=== PATIENT | female | born 1930 | race Caucasian/White ===

== ENCOUNTER 2016-09-18 14:42 | Inpatient (IN) | payer OTHER, MEDICAID ==
[~2016-09-18] VITALS: Ht 149.9 cm; Wt 53.1 kg
[2016-09-18 14:42] VITALS: BP 156/76; PULSE 78; RESP 19; TEMP 97.8; O2SAT 100
--- NOTE | 2016-09-18 14:42 | NUR ---
Patient to ER bed 3 to gown for evaluation. Side rails up. Report given to KAVYA Castillo.
--- NOTE | 2016-09-18 14:45 | NUR ---
PT IN BED 3, NO SOB. NONVERBAL. HERE FOR REPORT OF POSSIBLE SEPSIS. NO SIGN OF PAIN. WILL CONTINUE TO MONITOR.
--- NOTE | 2016-09-18 14:45 | NUR ---
ER at bedside examining patient.
[2016-09-18 16:02] LABS: ANION GAP 7 (5-15); CALCIUM 8.7 mg/dL (8.4-11.0); CHLORIDE 104 mmol/L (98-107); CREATININE 1.59 mg/dL (0.55-1.30); GLUCOSE 173 mg/dL (70-99); POTASSIUM 3.8 mmol/L (3.5-5.1); SODIUM SERUM 140 mmol/L (136-145); UREA NITROGEN, BLOOD 53 mg/dL (8-21)
[2016-09-18 16:04] LABS: PROTHROMBIN TIME 10.9 SECS (9.5-12.5)
[2016-09-18 16:12] LABS: HEMATOCRIT 36.5 % (36-48); HEMOGLOBIN 12.5 g/dL (12.0-16.0); MEAN CORPUSCULAR HEMOGLOBIN 30 pg (27-31); MEAN CORPUSCULAR HGB CONC 34 % (32-36); MEAN CORPUSCULAR VOLUME 88 fL (79.0-98.0); PLATELET COUNT (AUTO) 116 K/uL (130-430); RED BLOOD CELL COUNT(AUTO) 4.15 MIL/uL (4.2-6.2); RED CELL DISTRIBUTION WIDTH 13.6 % (9.0-15.0); WHITE BLOOD COUNT (AUTO) 21.7 K/uL (4.8-10.8)
[2016-09-18 16:19] LABS: ALANINE AMINOTRANSFERASE 21 U/L (12-78); ALBUMIN 2.3 g/dL (3.4-4.8); ASPARTATE AMINOTRANSFERASE 15 U/L (10-37); FREE T4 (FREE THYROXINE) 0.7 ng/dL (0.6-1.6); TOTAL BILIRUBIN 0.4 mg/dL (0.0-1.0); TOTAL PROTEIN, SERUM 7.2 g/dL (6.4-8.3)
[2016-09-18 16:22] LABS: ALCOHOL, BLOOD < 3 mg/dL (<10)
[2016-09-18 16:28] LABS: BILIRUBIN,URINE NEGATIVE (NEGATIVE); BLOOD, URINE 3+ (NEGATIVE); CLARITY/URINE SL HAZY (CLEAR); COLOR,URINE YELLOW (YELLOW); GLUCOSE,URINE NEGATIVE (NEGATIVE); KETONES,URINE NEGATIVE (NEGATIVE); LEUKOCYTE ESTERASE ,URINE 1+ (NEGATIVE); NITRITE, URINE POSITIVE (NEGATIVE); PROTEIN URINE 2+ (NEGATIVE)
[2016-09-18 16:30] LABS: UROBILINOGEN,URINE >=8 (0.2-1.0)
[2016-09-18] MEDS ORDERED: LEVOFLOXACIN 500 MG/D5W 100 ML IV ONE (16:45)
[2016-09-18 16:46] LABS: BARBITURATE, URINE NEGATIVE (NEG <=200); BENZODIAZEPINE, URINE NEGATIVE (NEG <=150); CANNABINOID, URINE NEGATIVE (NEG <=50); COCAINE, URINE NEGATIVE (NEG <=150); METHAMPHETAMINES SCREEN,URINE NEGATIVE (NEG <=500); OPIATE, URINE NEGATIVE (NEG <=100); PHENCYCLIDINE SCREEN,URINE NEGATIVE (NEG <=25); URINE AMPHETAMINE NEGATIVE (NEG <=500); URINE METHADONE NEGATIVE (NEG <=200)
[2016-09-18 16:47] LABS: UR TRICYCLIC ANTIDEPRESSANTS NEGATIVE (NEG <=300); URINE OXYCODONE SCREEN NEGATIVE (NEG <=100); URINE PROPOXYPHENE SCREEN NEGATIVE (NEG <=300)
[2016-09-18 16:59] LABS: BACTERIA,URINE MODERATE /HPF (None Seen); MUCUS,URINE None Seen /LPF (None Seen); WBC,URINE 20-50 /HPF (0-3)
[2016-09-18] MEDS ORDERED: MINERAL OIL 133 ML ENEMA RC ONE (17:00)
[2016-09-18 17:09] LABS: BAND % (MANUAL) 9 % (0-6); LYMPHOCYTES % (MANUAL) 8 % (20-46)
[2016-09-18 17:10] LABS: BASOPHILS % (MANUAL) 0 % (0-2); EOSINOPHILS % (MANUAL) 1 % (0-7); MONOCYTES % (MANUAL) 4 % (0-11)
--- NOTE | 2016-09-18 17:10 | NUR ---
Patient will be admitted to care of DR. Ac NAYAK. Admitted to TELEMETRY unit. Will go to room 120A. Summary report printed. Report given to KAVYA PFEIFFER.
--- NOTE | 2016-09-18 17:10 | NUR ---
ADMISSION NOTE Received patient from ER via gurney. Patient admitted with diagnosis of . Patient is awake, alert, oriented X 1. Personal belongings checked and Belongings List documented. Call light within reach.
--- NOTE | 2016-09-18 17:24 | NUR ---
CONSULT ID SEPSIS DR DELLA GENAO [phone] S/W RUI STUBBS @ [id number]
--- NOTE | 2016-09-18 17:38 | NUR ---
PAGED DR NAYAK FOR ELEVATED BP 197/89 AND MEDICATION ORDERS
[2016-09-18 17:58] VITALS: BP 197/89; PULSE 73; RESP 18; O2SAT 91
[2016-09-18] MEDS ORDERED: cefTRIAXone 1 GM in D5W 50 ML IV SCH (18:00)
--- NOTE | 2016-09-18 18:16 | NUR ---
INITIAL NOTE Patient received, non verbal unable to track with eyes at this time. Respirations even and unlabored. MD paged regarding elevated BP, awaiting call back. IV site patent, intact, infusing fluids as ordered. ekg monitor in place, rhythm noted. Plan of care discussed with daughterYeimy at bedside, understanding was verbalized. Spoke with Dr. Sloan, ID consult, to see patient. No further needs at this time. Will endorse to next shift.
[2016-09-18] MEDS: D5/0.45 NS 1,000 ML IV SCH (18:24)
[2016-09-18] MEDS ORDERED: ENALAPRILAT DIHYDRATE 1.25 MG/ML VIAL IVP PRN (18:30)
[2016-09-18] MEDS ORDERED: ENALAPRILAT DIHYDRATE 1.25 MG/ML VIAL IVP ONE (18:30)
--- NOTE | 2016-09-18 19:26 | NUR ---
Initial PM Note Pt was received lying in bed non-verbal. No acute distress noted. Daughter is visiting at the bedside. IVF is infusing well in Rt wrist. Fall and safety precautions are in place. Call light is with pt and bed alarm is on. Side rails are padded. Bed is in the lowest and locked positions. Will continue to monitor pt.
[2016-09-18 19:30] VITALS: BP 166/89; PULSE 72; RESP 19; TEMP 97.4; O2SAT 94
[2016-09-18] MEDS ORDERED: METOPROLOL TARTRATE 5 MG/5 ML VIAL IVP PRN (19:30)
--- NOTE | 2016-09-18 19:46 | NUR ---
Mineral Oil Enema Mineral oil enema given per rectum as ordered.
[2016-09-18] MEDS: levETIRAcetam 500 MG in NS 100 ML IV SCH (20:48)
--- NOTE | 2016-09-18 21:30 | NUR ---
Rounds Pt is resting quietly in bed. No facial grimacing noted. IVF is infusing well. Call light is with pt.
--- NOTE | 2016-09-18 23:00 | NUR ---
Rounds Pt is resting comfortably in bed. IVF is infusing well.
[2016-09-19 00:01] VITALS: BP 162/70; PULSE 81; RESP 17; TEMP 96.4; O2SAT 96
--- NOTE | 2016-09-19 01:00 | NUR ---
Rounds Pt is sleeping comfortably in bed. IVF is infusing well. Call light is with pt.
[2016-09-19 04:00] VITALS: BP 141/97; PULSE 76; RESP 16; TEMP 97.6; O2SAT 90
[2016-09-19 06:29] LABS: ANION GAP 8 (5-15); CALCIUM 8.5 mg/dL (8.4-11.0); CHLORIDE 103 mmol/L (98-107); CREATININE 1.25 mg/dL (0.55-1.30); GLUCOSE 248 mg/dL (70-99); POTASSIUM 3.4 mmol/L (3.5-5.1); SODIUM SERUM 140 mmol/L (136-145); UREA NITROGEN, BLOOD 35 mg/dL (8-21)
--- NOTE | 2016-09-19 06:30 | NUR ---
Closing Note Pt is resting comfortably in bed. All pt's needs were attended to. Will endorse to day shift nurse.
[2016-09-19 06:58] LABS: BASOPHILS % (AUTO) 0.1 % (0.0-2.0); EOSINOPHILS # (AUTO) 0.1 K/uL (0.0-0.4); EOSINOPHILS % (AUTO) 0.4 % (0.0-4.0); HEMATOCRIT 40.2 % (36-48); HEMOGLOBIN 13.8 g/dL (12.0-16.0); LYMPHOCYTES # (AUTO) 0.6 K/uL (1.0-5.5); LYMPHOCYTES % (AUTO) 3.5 % (20.5-51.5); MEAN CORPUSCULAR HEMOGLOBIN 30 pg (27-31); MEAN CORPUSCULAR HGB CONC 34 % (32-36); MEAN CORPUSCULAR VOLUME 87 fL (79.0-98.0); MONOCYTES # (AUTO) 0.7 K/uL (0.0-1.0); MONOCYTES % (AUTO) 3.6 % (1.7-9.3); PLATELET COUNT (AUTO) 107 K/uL (130-430); RED BLOOD CELL COUNT(AUTO) 4.63 MIL/uL (4.2-6.2); RED CELL DISTRIBUTION WIDTH 13.6 % (9.0-15.0); WHITE BLOOD COUNT (AUTO) 18.4 K/uL (4.8-10.8)
[2016-09-19 07:18] LABS: NEUTROPHILS % (AUTO) 92.4 % (40.0-70.0)
[2016-09-19 08:00] VITALS: BP 151/75; PULSE 93; RESP 22; TEMP 100; O2SAT 94
--- NOTE | 2016-09-19 09:21 | NUR ---
DR GUPTA IN TO SEE PATIENT, ORDERS TO CONTINUE HOME MEDS GIVEN, ORDERS FOR SWALLOW EVAL. GIVE PO MEDS AFTER SWALLOW EVAL PASS
--- NOTE | 2016-09-19 09:28 | NUR ---
Swallow evaluation: Order received for a swallow evaluation, call was placed to [facility] [phone]. Spoke with Samia, she will be in to evaluate the pt this afternoon. Will follow up as needed.
[2016-09-19] MEDS: D5/0.45 NS 1,000 ML IV SCH (09:31)
[2016-09-19] MEDS: levETIRAcetam 500 MG in NS 100 ML IV SCH ×2 (09:32→21:24)
--- NOTE | 2016-09-19 11:21 | NUR ---
CALLS FROM BOTH PT SON AND DAUGHTER REGARDING STATUS. GAVE UPDATES. AWAITING ON SPEECH THERAPY SWALLOW EVAL AT THIS TIME.
[2016-09-19 12:26] VITALS: BP 148/72; PULSE 95; RESP 19; TEMP 98.9; O2SAT 95
--- NOTE | 2016-09-19 13:00 | NUR ---
MRSA SCREEN SWAB SENT TO LAB PER PROTOCOL
[2016-09-19] MEDS ORDERED: D5W IV SCH (15:00)
[2016-09-19] MEDS ORDERED: GENTAMICIN 120 MG/ ISO-OSM 100 ML PREMIX IV SCH (15:00)
[2016-09-19] MEDS ORDERED: CEFEPIME IV SCH (15:00)
--- NOTE | 2016-09-19 15:35 | NUR ---
S.T. SWALLOW EVAL COMPLETED. PT PRESENTS W/ SEV OROPHARYNGEAL DYSPHAGIA W/ ORAL DEFENSIVENESS, POOR BOLUS SOLE SEWER HAND, SEV DELAYED BOLUS TRANSFER, AND DELAYED OR ABSENT SWALLOW. PT IS AT RISK FOR ASPIRATION, MALNUTRITION, AND DEHYDRATION. REC: NPO - ALTERNATIVE METHOD FOR FEEDING. RE-EVAL IN A FEW DAYS INDICATED. NURSE ANGE NOTIFIED. G8996 CM G8997 CM G8998 CM NOMS LEVEL 2
--- NOTE | 2016-09-19 16:16 | NUR ---
PATIENT TAKEN TO CT VIA MAURICIO
[2016-09-19 16:48] VITALS: BP 140/70; PULSE 92; RESP 18; TEMP 98.6; O2SAT 95
--- NOTE | 2016-09-19 18:36 | NUR ---
CLOSING NOTE PATIENT IS AWAKE AND SITTING UP IN BED, CATHYECE, NAIVD, IS AT BEDSIDE FEEDING HER APPLESAUCE. PER NIECE SHE IS USUALLY THE PERSON FEEDING HER AUNT AND HER AUNT OFTEN WON'T TAKE PILLS FROM THE NURSES. SHE STATES SHE REFUSES TO EAT FOR THE NURSES WELL. I INFORMED HER THAT THE PATIENT HAS HAD A PROFESSIONAL SWALLOW EVALUATION FROM A SPEECH PATHOLOGIST WHO RECOMMENDED WE NO FEED THE PATIENT ANYTHING FOR A COUPLE MORE DAYS UNTIL SHE IS MORE ALERT. LA NENA AGAIN INSISTED SHE WOULD EAT WELL FOR HER. OFFERED HER APPLESAUCE TO TRY AND FEED THE PATIENT AND THE PATIENT WAS ABLE TO SWALLOW EFFECTIVELY. LEFT NOTE IN SBAR FOR NEXT SHIFT TO HAVE MD AND ASSURANCE AUDITOR GET IN TOUCH WITH NAVID REGARDING THIS SITUATION.
--- NOTE | 2016-09-19 19:39 | NUR ---
REPORT REPORT GIVEN TO DIRECTOR CHEMISTRY RN REGARDING PATIENT NPO STATUS, FAILED SWALLOW EVAL AND NIECE FEEDING HER APPLESAUCE. ER DID NOT ENTER MEDICATIONS HOWEVER MD DOES NOT WANT PATIENT TAKING PO MEDICATIONS UNTIL SHE PASSES SWALLOW EVAL ANYWAY. MEDICATION LIST WITH CHECK HOOD ON MEDS MD WANTS PT ON IN HOSPITAL IS IN SBAR FOLDER. PASSED THIS INFO ON TO DIRECTOR CHEMISTRY WELL.
[2016-09-19 20:00] VITALS: BP 151/74; PULSE 67; RESP 18; TEMP 97.6; O2SAT 95
--- NOTE | 2016-09-19 20:00 | NUR ---
Initial PM Note Pt was received lying in bed sleeping and easily arousable. Pt is non-verbal. No acute distress or seizure activity noted. IVF is infusing well in Rt wrist without any signs of infiltration. Fall and safety precautions are in place. Call light is with pt and bed alarm is on. Side rails are padded. Bed is in the lowest and locked positions. Will continue to monitor pt.
[2016-09-19] MEDS ORDERED: ASA81 PO (20:36)
[2016-09-19] MEDS ORDERED: ESCI5TAB PO (20:36)
[2016-09-19] MEDS ORDERED: LEVE500T53 PO (20:36)
[2016-09-19] MEDS ORDERED: DEPL250/5 PO (20:36)
[2016-09-19] MEDS ORDERED: ACET160S2 PO (20:36)
[2016-09-19] MEDS ORDERED: MELA5TAB12 PO (20:47)
[2016-09-19] MEDS ORDERED: SIMV40TA5 PO (20:47)
[2016-09-19] MEDS ORDERED: TRIH2TAB3 PO (20:47)
[2016-09-19] MEDS ORDERED: METO25TA6 PO (20:47)
--- NOTE | 2016-09-19 22:00 | NUR ---
Rounds Pt is resting comfortably in bed. IVF is infusing well without any signs of infiltration.
--- NOTE | 2016-09-20 | NUR ---
Rounds Pt is sleeping without any respiratory distress noted. No seizure activity noted. IVF is infusing well in Rt wrist.
[2016-09-20 01:17] VITALS: BP 144/86; PULSE 73; RESP 16; TEMP 99.5; O2SAT 93
--- NOTE | 2016-09-20 02:00 | NUR ---
Rounds Pt is sleeping without any distress noted. IVF is infusing well and call light is with pt.
[2016-09-20] MEDS: D5/0.45 NS 1,000 ML IV SCH ×3 (02:08→21:38)
[2016-09-20 04:00] VITALS: BP 150/97; PULSE 76; RESP 18; TEMP 96.6; O2SAT 95
--- NOTE | 2016-09-20 04:00 | NUR ---
Rounds Pt is sleeping comfortably in bed. Call light is with pt.
--- NOTE | 2016-09-20 05:29 | NUR ---
Rounds Pt is sleeping comfortably in bed. IVF is infusing well in RAC. Addendum: 09/20/16 at 1698 by Prudence Aggarwal RN IVF is infusing well in Rt wrist and call light is with pt.
[2016-09-20 06:35] LABS: ALANINE AMINOTRANSFERASE 16 U/L (12-78); ALBUMIN 2.1 g/dL (3.4-4.8); ANION GAP 5 (5-15); ASPARTATE AMINOTRANSFERASE 17 U/L (10-37); CALCIUM 8.2 mg/dL (8.4-11.0); CHLORIDE 104 mmol/L (98-107); CREATININE 1.06 mg/dL (0.55-1.30); GLUCOSE 202 mg/dL (70-99); SODIUM SERUM 138 mmol/L (136-145); TOTAL BILIRUBIN 0.5 mg/dL (0.0-1.0); TOTAL PROTEIN, SERUM 6.6 g/dL (6.4-8.3); UREA NITROGEN, BLOOD 26 mg/dL (8-21)
[2016-09-20 06:42] LABS: BASOPHILS % (AUTO) 0.1 % (0.0-2.0); EOSINOPHILS # (AUTO) 0.4 K/uL (0.0-0.4); HEMOGLOBIN 12.5 g/dL (12.0-16.0); LYMPHOCYTES # (AUTO) 1.3 K/uL (1.0-5.5); LYMPHOCYTES % (AUTO) 8.6 % (20.5-51.5); MEAN CORPUSCULAR HEMOGLOBIN 29 pg (27-31)
--- NOTE | 2016-09-20 07:00 | NUR ---
Closing Note Pt is resting comfortably in bed. All pt's needs were attended to. No fall or injury noted this shift. Will endorse to day shift nurse.
[2016-09-20 07:03] LABS: EOSINOPHILS % (AUTO) 2.7 % (0.0-4.0); HEMATOCRIT 37.9 % (36-48); MEAN CORPUSCULAR HGB CONC 33 % (32-36); MEAN CORPUSCULAR VOLUME 86 fL (79.0-98.0); MONOCYTES # (AUTO) 1.8 K/uL (0.0-1.0); MONOCYTES % (AUTO) 11.3 % (1.7-9.3); NEUTROPHILS % (AUTO) 77.3 % (40.0-70.0); PLATELET COUNT (AUTO) 125 K/uL (130-430); RED CELL DISTRIBUTION WIDTH 13.8 % (9.0-15.0); WHITE BLOOD COUNT (AUTO) 15.5 K/uL (4.8-10.8)
[2016-09-20 07:45] VITALS: BP 198/78; PULSE 80; RESP 22; TEMP 96.8; O2SAT 97
--- NOTE | 2016-09-20 08:00 | NUR ---
INITIAL ROUNDS Received pt Awake, eyes open, non-verbal. No s/s resp distress, no s/s pain or discomfort. Noted pt with elevated BP-will give PRN BP medication as ordered for SBP > 160. Pt on air mattress-will reposition pt Q 2hrs with pillow support and heels off-loaded for skin care. IVF infusing well to right wrist at ordered rate with no s/s infiltration to site. Pt's daughter at bedside and is requesting to speak with Dr. Ruiz-will inform MD/leave note on front of chart. Plan of care for the day reviewed with pt's daughter Yeimy-she verbalized her understanding. Pain management, disease process, skin and safety discussed-teach back done with pt's daughter. Side rails up x3, bed alarm on and room close to nursing station for safety.Call light within reach.
[2016-09-20] MEDS: levETIRAcetam 500 MG in NS 100 ML IV SCH ×2 (08:23→21:35)
--- NOTE | 2016-09-20 10:07 | NUR ---
Uro Consult: for [employer] Tavarez; regarding hydrohephrosis, ordered by Faith Poole; spoke with Bettina.
--- NOTE | 2016-09-20 10:10 | NUR ---
ROUNDS/BP/MD Pt resting quietly in bed with no s/s resp distress, no s/s pain or discomfort. Pt's BP rechecked 210/97. Dr. Ruiz here and informed-stated he will place order for bp medication. Discussed pt's daughter Yeimy's concerns with MD-he stated he will call her. Results of CT abd and Speech evaluation discussed with MD-he stated he will order urinary consult. All precautions remain in place.
[2016-09-20] MEDS ORDERED: POTASSIUM CHLORIDE 40 MEQ in NS 250 ML IV ONE (10:15)
--- NOTE | 2016-09-20 10:28 | NUR ---
GI Consult: for Dr. Greer, regarding constipation, ordered by Dr. Ruiz, spoke with
[2016-09-20 10:43] VITALS: Ht 149.9 cm; Wt 53.1 kg
[2016-09-20] MEDS: METOPROLOL TARTRATE 5 MG/5 ML VIAL IVP PRN ×2 (10:52→15:58)
--- NOTE | 2016-09-20 11:02 | NUR ---
BP/ROUND Pt resting in bed. Recheck BP: 192/92, HR 79. Medicated with lopressor IVP PRN per MD order. Will continue to monitor.
--- NOTE | 2016-09-20 12:35 | NUR ---
MD VISIT Pt seen by Dr. [facility]-he called and spoke with pt's daughter Yeimy regarding the need for Cystoscopy and possible right ureteral stent tomorrow. Pt's daughter will come this evening to sign the consent. Pt resting quietly with no s/s resp distress, no s/s pain or discomfort.
[2016-09-20 12:40] VITALS: BP 192/92; PULSE 79; RESP 18; TEMP 97.9; O2SAT 96
[2016-09-20] MEDS ORDERED: COMMUNICATION ORDER XX ONE (14:15)
--- NOTE | 2016-09-20 14:15 | NUR ---
ROUNDS Pt placed on Contact Isolation for ESBL + of the urine. Pt resting quietly in bed with no s/s resp distress, no s/s pain or discomfort. K-rider still infusing well to Right wrist at ordered rate with no s/s infiltration to site. Pt had moderate sized BM, pt cleaned up and repositioned with pillow support and heels off-loaded for skin care. All precautions remain in place.
[2016-09-20] MEDS ORDERED: NA PHOS,M-B/NA PHOS,DI-BA 118 ML (FLEET ENEMA) RC ONE (14:45)
--- NOTE | 2016-09-20 15:26 | NUR ---
S.T. SWALLOW EVAL COMPLETED. PT PRESENTS W/ MOD OROPHARYNGEAL DYSPHAGIA W/ DECREASED BOLUS RESIDENT CARE AID, DELAYED BOLUS TRANSFER AND DELAYED SWALLOW FOR PUREE AND THICK LIQUIDS. THIN LIQUID SWALLOW WAS TIMELY. NO S/S OF ASPIRATION. MUCH IMPROVEMENT FROM YESTERDAY. REC: PUREE DIET. THIN LIQUIDS OK. MONITOR FOR ADEQUATE INTAKE. NURSE CLIFFORD NOTIFIED. G8996 CK G8997 CK G8998 CK NOMS LEVEL 4
--- NOTE | 2016-09-20 16:05 | NUR ---
ROUNDS/SWALLOW EVAL Pt had swallow evaluation by Samia Speech Therapist-noted pt passed and okay to have Pureed diet with thin liquids with aspiration precautions. Pt with no s/s resp distress, noted pt had elevated BP earlier-given Lopressor via Iv as ordered. All precautions remain in place.
[2016-09-20 16:34] VITALS: BP 209/93; PULSE 80; RESP 18; TEMP 97; O2SAT 96
--- NOTE | 2016-09-20 17:00 | NUR ---
BM Pt had moderated sized BM, pt cleaned up and repositioned for comfort and skin care. Pt not given enema as ordered due to BM-will inform MD.
[2016-09-20] MEDS: ERTAPENEM SODIUM 1 GM in NS 50 ML IV SCH (17:30)
--- NOTE | 2016-09-20 18:51 | NUR ---
CLOSING NOTE Pt sitting up in bed being fed pureed diet by pt's niece, aspiration precautions in place-pt tolerating well with no s/s aspiration noted. No s/s resp distress, no s/s pain or discomfort. All precautions remain in place. Needs met, call light within reach.
--- NOTE | 2016-09-20 19:30 | NUR ---
INITIAL ASSESSMENT: Received pt in bed, Awake, eyes open, non-verbal. No s/s respiratory distress, no s/s pain or discomfort. no respiratory distress, on room air, chest clear, abdomen softy and non distended, active bowel sound throughout abdomen, Noted pt with elevated BP-per day shift RN, administered Lopressor few hours ago, will continue to monitor. Pt on air mattress-will reposition pt Q 2hrs with pillow support and heels off-loaded for skin care. IVF infusing well to right wrist at ordered rate with no s/s infiltration to site. Plan of care for the day reviewed, unable to see if pt understood, Pain management, disease process, skin and safety discussed. Side rails up x3, bed alarm on and room close to nursing station for safety. maintained contact isolation, Call light within reach.
[2016-09-20 20:00] VITALS: BP 174/74; PULSE 74; RESP 18; TEMP 97.4; O2SAT 97
--- NOTE | 2016-09-20 21:20 | NUR ---
Administered medication: pt resting all medication administered, crushed and mix with apple sauce, pt swallowed well, no coughing or any sign of aspiration, Pt had moderated sized BM, pt cleaned up and repositioned for comfort and skin care. IVF infusing well, all needs attended, will continue to monitor.
[2016-09-20] MEDS: VALPROIC ACID ORAL SYRUP 250 MG/5 ML UDC PO SCH (21:35)
[2016-09-20] MEDS: SIMVASTATIN 40 MG TABLET PO SCH (21:39)
[2016-09-20] MEDS: levETIRAcetam 500 MG TABLET PO SCH (21:39)
[2016-09-20] MEDS: METOPROLOL TARTRATE 25 MG TABLET PO SCH (21:39)
--- NOTE | 2016-09-20 22:05 | NUR ---
PAGED PAGED CÉSAR JJ AT [phone] SPOKE WITH ERNESTINA.
[2016-09-20] MEDS ORDERED: ENALAPRILAT DIHYDRATE 1.25 MG/ML VIAL IVP ONE (22:36)
--- NOTE | 2016-09-20 22:43 | NUR ---
PAGESarita NAYAK AND SPOKE WITH MD, NOTIFIED PT'S HIGH BLOOD PRESSURE, MD ORDER TO DC LOPRESSOR IVP AND ORDER VASOTEC 2.5 MG IVP FOR ABP ABOVE 160. WILL ADMINISTERED PT'S BP 161/77, WILL REASSESS, IVF INFUSING WELL, SR ON PELLET MACHINE OPERATOR, TURN AND REPOSITION, AWAITING FOR PT'S DAUGHTER FOR CONSENT PT'S DAUGHTER DASIA STATED SHE WILL BE HERE AT HOSPITAL TO SIGN CONSENT. WILL CONTINUE TO MONITOR.
[2016-09-20] MEDS ORDERED: ENALAPRILAT DIHYDRATE 1.25 MG/ML VIAL IVP PRN (22:45)
--- NOTE | 2016-09-20 23:23 | NUR ---
PT SLEEPING, NO NOTED DISTRESS, BREATHING EVEN AND NON LABORED, ON ROOM AIR, VITAL STABLE, SR ON BAD CREDIT COLLECTOR. IVF INFUSING WELL, TURN AND REPOSITION, ALL NEEDS ATTENDED, CALL LIGHT WITH IN REACH, WILL CONTINUE TO MONITOR.
[2016-09-21] VITALS (9 sets, daily range): BP systolic 101–166; BP diastolic 48–73; PULSE 70–102; RESP 17–20; TEMP 97.6–99.6; O2SAT 95–98
--- NOTE | 2016-09-21 01:31 | NUR ---
PT SLEEPING, NO NOTED DISTRESS, BREATHING EVEN AND NON LABORED, ON ROOM AIR, VITAL STABLE, SR ON CANCER CENTER DIRECTOR. IVF INFUSING WELL, TURN AND REPOSITION, ALL NEEDS ATTENDED, CALL LIGHT WITH IN REACH, WILL CONTINUE TO MONITOR.
--- NOTE | 2016-09-21 03:24 | NUR ---
RN ROUND: PT SLEEPING, NO NOTED DISTRESS, BREATHING EVEN AND NON LABORED, ON ROOM AIR, VITAL STABLE, SR ON INVESTMENT ACCOUNTANT. IVF INFUSING WELL, TURN AND REPOSITION, ALL NEEDS ATTENDED, CALL LIGHT WITH IN REACH, WILL CONTINUE TO MONITOR.
--- NOTE | 2016-09-21 05:01 | NUR ---
RN NOTE: PT SLEEPING, NO NOTED DISTRESS, BREATHING EVEN AND NON LABORED, ON ROOM AIR, VITAL STABLE, SR ON PAINTER AND DECORATOR APPRENTICE. IVF INFUSING WELL, TURN AND REPOSITION, PT HAD LIQUID GREEN BOWEL MOVEMENT, CLEAN AND HYGIENE CARE RENDERED, ALL NEEDS ATTENDED, CALL LIGHT WITH IN REACH, WILL CONTINUE TO MONITOR.
--- NOTE | 2016-09-21 05:48 | NUR ---
HYGIENE CARE: PT SLEEPING, NO NOTED DISTRESS, BREATHING EVEN AND NON LABORED, ON ROOM AIR, VITAL STABLE, SR ON ADVERTISING OPERATIONS COORDINATOR. IVF INFUSING WELL, TURN AND REPOSITION, PT HAD LIQUID GREEN BOWEL MOVEMENT, CLEAN AND HYGIENE CARE RENDERED, ALL NEEDS ATTENDED, CALL LIGHT WITH IN REACH, WILL CONTINUE TO MONITOR. CONTACT ISOLATION MAINTAINED.
--- NOTE | 2016-09-21 06:50 | NUR ---
CLOSING NOTE: PT SLEEPING, NO NOTED DISTRESS, BREATHING EVEN AND NON LABORED, ON ROOM AIR, VITAL STABLE, SR ON CAMPUS MANAGER. IVF INFUSING WELL, TURN AND REPOSITION, CONTACT ISOLATION MAINTAINED. ALL NEEDS ATTENDED THROUGHOUT SHIFT, CALL LIGHT WITH IN REACH, WILL ENDORSE TO AM NURSE.
[2016-09-21 07:02] LABS: ANION GAP 6 (5-15); BASOPHILS # (AUTO) 0.1 K/uL (0.0-0.2); BASOPHILS % (AUTO) 0.5 % (0.0-2.0); CHLORIDE 106 mmol/L (98-107); CREATININE 0.99 mg/dL (0.55-1.30); EOSINOPHILS # (AUTO) 0.4 K/uL (0.0-0.4); EOSINOPHILS % (AUTO) 2.7 % (0.0-4.0); GLUCOSE 183 mg/dL (70-99); HEMATOCRIT 33.9 % (36-48); HEMOGLOBIN 11.5 g/dL (12.0-16.0); LYMPHOCYTES # (AUTO) 1.9 K/uL (1.0-5.5); LYMPHOCYTES % (AUTO) 14.5 % (20.5-51.5); MEAN CORPUSCULAR HEMOGLOBIN 30 pg (27-31); MEAN CORPUSCULAR HGB CONC 34 % (32-36); MEAN CORPUSCULAR VOLUME 87 fL (79.0-98.0); MONOCYTES # (AUTO) 1.7 K/uL (0.0-1.0); MONOCYTES % (AUTO) 12.4 % (1.7-9.3); NEUTROPHILS # (AUTO) 9.3 K/uL (1.8-7.7); NEUTROPHILS % (AUTO) 69.9 % (40.0-70.0); PLATELET COUNT (AUTO) 117 K/uL (130-430); POTASSIUM 3.3 mmol/L (3.5-5.1); RED BLOOD CELL COUNT(AUTO) 3.91 MIL/uL (4.2-6.2); RED CELL DISTRIBUTION WIDTH 13.9 % (9.0-15.0); SODIUM SERUM 138 mmol/L (136-145); UREA NITROGEN, BLOOD 19 mg/dL (8-21); WHITE BLOOD COUNT (AUTO) 13.4 K/uL (4.8-10.8)
--- NOTE | 2016-09-21 08:00 | NUR ---
Initial Note Patient non-verbal, opens eyes when talked to. Respirations even and unlabored. IV access patent. Afebrile. Patient had bowel movement this morning, solid. Fall and safety precautions in place. Bed in lowest and locked position.
[2016-09-21] MEDS: ASPIRIN 81 MG TAB.CHEW PO SCH (09:00)
[2016-09-21] MEDS: CITALOPRAM HYDROBROMIDE 20 MG TABLET PO SCH (09:00)
[2016-09-21] MEDS ORDERED: ESCITALOPRAM OXALATE 10 MG TABLET PO SCH (09:00)
[2016-09-21] MEDS: levETIRAcetam 500 MG TABLET PO SCH ×2 (09:00→21:00)
[2016-09-21] MEDS: VALPROIC ACID ORAL SYRUP 250 MG/5 ML UDC PO SCH ×2 (09:00→21:00)
[2016-09-21] MEDS: METOPROLOL TARTRATE 25 MG TABLET PO SCH ×2 (09:00→21:00)
[2016-09-21] MEDS: TRIHEXYPHENIDYL HCL 2 MG TABLET (ARTANE) PO SCH (09:00)
[2016-09-21] MEDS: D5/0.45 NS 1,000 ML IV SCH (10:49)
--- NOTE | 2016-09-21 10:50 | NUR ---
Wound Evaluation: Wound Consult ordered for Low Kareem Score. Patient evaluated for a low Kareem score of 12. Patient was asleep, awakens easily, non-verbal, non-responsive to verbal commands, and received in a [place] Bed with an IsoFlex FLORENCE mattress with low air-loss therapy initiated. Patient needs to be turned in bed. Skin is Fair; Patient is incontinent of bowel and bladder. Recommend reposition patient every 2 hours with pillow support. Elevate, off-load and float bilateral heels with pillows. Offload pressure areas with pillows for pressure re-distribution. Perform skin care and monitor skin integrity Q shift. Use moisture barrier cream on moisture susceptible areas QID and PRN for soiling. Maintain patient on a low air-loss mattress. Will continue to follow as a Kareem.
--- NOTE | 2016-09-21 11:12 | NUR ---
Notes Patient awakens easily, but does not follow simple commands. Blood pressure addressed per MD orders.
--- NOTE | 2016-09-21 11:28 | NUR ---
CALLED ID MD DR DELLA GENAO, RE: RESULTS. SPOKE TO NEELAM
[2016-09-21] MEDS ORDERED: POTASSIUM CHLORIDE 20 MEQ/PKT PACKET PO ONE (11:45)
--- NOTE | 2016-09-21 11:48 | NUR ---
Notes Informed Dr. Riuz of patient's positive blood culture. No new orders given. stated patient is on appropriate antibiotics.
--- NOTE | 2016-09-21 14:03 | NUR ---
Nutrition Note Nutrition Consult (Kareem Score of 12) 09/21/16 1340. Pt was seen and assessed by RD on 09/20/16. Please refer to Nutrition Assessment for details. RD to continue to follow per nutrition care standards.
--- NOTE | 2016-09-21 14:30 | NUR ---
Notes Daughter, Yeimy, called top inquire on patient's status. Informed her patient will have surgery at 4:30 pm.
[2016-09-21] MEDS: ERTAPENEM SODIUM 1 GM in NS 50 ML IV SCH (15:49)
[2016-09-21] MEDS ORDERED: MIDAZOLAM HCL 5 MG/5 ML VIAL IVP ONE (16:15)
[2016-09-21] MEDS ORDERED: NEOSTIGMINE METHYLSULFATE 1 MG/ML, 10 ML VIAL IVP ONE (16:15)
[2016-09-21] MEDS ORDERED: PROPOFOL 200MG/ 20ML VIAL (DIPRIVAN) IV ONE (16:15)
[2016-09-21] MEDS ORDERED: ONDANSETRON HCL 4 MG/2 ML VIAL IVP ONE (16:15)
[2016-09-21] MEDS ORDERED: ROCURONIUM BROMIDE 10 MG/ML (ZEMURON) IV ONE (16:15)
[2016-09-21] MEDS ORDERED: DEXAMETHASONE SOD PHOSPHATE 4 MG/ML VIAL IVP ONE (16:15)
[2016-09-21] MEDS ORDERED: LR 1,000 ML IV.SOLN IV ONE (16:15)
[2016-09-21] MEDS ORDERED: fentaNYL CITRATE/PF 100 MCG/2 ML AMP IVP ONE (16:15)
[2016-09-21] MEDS ORDERED: SEVOFLURANE 15 MIN GAS INH ONE (16:15)
[2016-09-21] MEDS ORDERED: KETOROLAC TROMETHAMINE 15 MG VIAL IVP ONE (16:15)
[2016-09-21] MEDS ORDERED: GLYCOPYRROLATE 0.2 MG/ML VIAL IJ ONE (16:15)
--- NOTE | 2016-09-21 16:30 | NUR ---
Notes Patient taken to OR. Patient opens eyes when named called. No acute distress.
[2016-09-21] MEDS ORDERED: IOHEXOL 50 ML IV ONE (16:50)
[2016-09-21] MEDS ORDERED: LR 1,000 ML IV SCH (17:29)
[2016-09-21] MEDS ORDERED: HYDROmorphone 2 MG/ML VIAL IVP PRN ×2 (17:30)
[2016-09-21] MEDS ORDERED: MEPERIDINE HCL/PF 25 MG/ML DISP.SYRIN IVP PRN (17:30)
[2016-09-21] MEDS ORDERED: HYDROmorphone 1 MG INJ. 1 MG/ML AMPUL IVP PRN (17:30)
--- NOTE | 2016-09-21 18:57 | NUR ---
Closing Notes Patient transferred back from PACU. Opens eyes to name and light touch. VSS, temperature 99.2 at this time. Will continue to monitor until patient care is endorsed to oncoming shift nurse.
--- NOTE | 2016-09-21 20:00 | NUR ---
ROUNDS PATIENT IN BED, ASLEEP AT THIS TIME, NOT IN DISTRESS, VITALS STABLE, NO SIGNS OF ANY PAIN AND DISCOMFORT AT THIS TIME. ASSESSMENT DONE AND DOCUMENTED. SEE FLOWSHEET. NEEDS ATTENDED TO. REPOSITIONED AND MADE COMFORTABLE. SAFETY AND FALL PRECAUTION MEASURES IN PLACED. BED IN LOW AND LOCKED POSITION. CALL LIGHT PLACED WITHIN REACH.
[2016-09-21] MEDS: SIMVASTATIN 40 MG TABLET PO SCH (21:00)
[2016-09-22] VITALS (17 sets, daily range): BP systolic 96–156; BP diastolic 49–77; PULSE 65–83; RESP 11–20; TEMP 97.4–98.1; O2SAT 96–100
--- NOTE | 2016-09-22 | NUR ---
PATIENT RESTING: Patient resting quietly. No acute distress noted. Vital signs within normal range.
--- NOTE | 2016-09-22 02:10 | NUR ---
ROUNDS ASLEEP, NO SOB NOTED, WILL CONTINUE TO MONITOR.
[2016-09-22] MEDS: D5/0.45 NS 1,000 ML IV SCH (03:45)
--- NOTE | 2016-09-22 04:00 | NUR ---
PATIENT RESTING: Patient resting quietly. No acute distress noted. Vital signs within normal range.
--- NOTE | 2016-09-22 06:03 | NUR ---
PAGED DR NAEL NAVARRETE.
--- NOTE | 2016-09-22 06:50 | NUR ---
CLOSING NOTES PATIENT STABLE, ALL NEEDS MET, PAGED AND TALKED TO Ac MARTIN NEW ORDER FOR PUREED DIET AND DO STRAIGHT CATH FOR URINE SAMPLE FOR LAB FOR URINE CULTURE ORDERED. SAFETY MEASURES MAINTAINED. WILL ENDORSE TO INCOMING SHIFT NURSE.
[2016-09-22 07:04] LABS: HEMATOCRIT 31.7 % (36-48); HEMOGLOBIN 10.9 g/dL (12.0-16.0); MEAN CORPUSCULAR HEMOGLOBIN 30 pg (27-31); MEAN CORPUSCULAR HGB CONC 34 % (32-36); MEAN CORPUSCULAR VOLUME 86 fL (79.0-98.0); PLATELET COUNT (AUTO) 117 K/uL (130-430); RED BLOOD CELL COUNT(AUTO) 3.68 MIL/uL (4.2-6.2); RED CELL DISTRIBUTION WIDTH 13.9 % (9.0-15.0)
[2016-09-22 07:06] LABS: ANION GAP 12 (5-15); CALCIUM 7.7 mg/dL (8.4-11.0); CHLORIDE 103 mmol/L (98-107); CREATININE 1.48 mg/dL (0.55-1.30); GLUCOSE 239 mg/dL (70-99); PHOSPHORUS 4.1 mg/dL (2.7-4.5); POTASSIUM 3.4 mmol/L (3.5-5.1); SODIUM SERUM 138 mmol/L (136-145); UREA NITROGEN, BLOOD 21 mg/dL (8-21)
--- NOTE | 2016-09-22 07:08 | NUR ---
HANDOFF ROUNDS AT BEDSIDE. PATIENT SLEEPING AT THIS TIME.
[2016-09-22 07:09] LABS: WHITE BLOOD COUNT (AUTO) 48.7 K/uL (4.8-10.8)
--- NOTE | 2016-09-22 07:20 | NUR ---
paged dr. hargrove spoke to felipa dialed [phone]
--- NOTE | 2016-09-22 07:55 | NUR ---
Handoff rounds. Patient with elevated wbc and e.coli of urine and blood. Call to MD for WBC results at change of shift. Will request orders.
[2016-09-22 08:00] LABS: BAND % (MANUAL) 33 % (0-6); BASOPHILS % (MANUAL) 0 % (0-2); EOSINOPHILS % (MANUAL) 0 % (0-7); LYMPHOCYTES % (MANUAL) 5 % (20-46); MONOCYTES % (MANUAL) 1 % (0-11)
--- NOTE | 2016-09-22 08:33 | NUR ---
FAMILY MEMBER PRESENT NOTES GOWN MOIST. IV SITE IS NOT FUNCTIONING IN RIGHT WRIST. ATTEMPT X2 BY IT SYSTEMS ANALYST CONSULTANT AND X1 CHARGE NURSE FOR NEW IV.
[2016-09-22] MEDS: TRIHEXYPHENIDYL HCL 2 MG TABLET (ARTANE) PO SCH (09:09)
[2016-09-22] MEDS: METOPROLOL TARTRATE 25 MG TABLET PO SCH ×2 (09:10→23:46)
[2016-09-22] MEDS: levETIRAcetam 500 MG TABLET PO SCH (09:10)
[2016-09-22] MEDS: CITALOPRAM HYDROBROMIDE 20 MG TABLET PO SCH (09:10)
[2016-09-22] MEDS: ASPIRIN 81 MG TAB.CHEW PO SCH (09:10)
[2016-09-22] MEDS: POLYETHYLENE GLYCOL 3350, 17 GM/ POWD.PACK PO SCH (09:11)
[2016-09-22] MEDS: VALPROIC ACID ORAL SYRUP 250 MG/5 ML UDC PO SCH ×2 (09:15→22:55)
--- NOTE | 2016-09-22 09:20 | NUR ---
ROUNDS TO PATIENT IV AND LAB DRAW ESTABLISHED SIMULTANEOUSLY PATIENT IN NEED OF FURTHER FLUID. MED PASS COMPLETE.
[2016-09-22 09:22] LABS: MONOCYTES # (AUTO) 0.8 K/uL (0.0-1.0)
[2016-09-22 09:26] LABS: MEAN CORPUSCULAR HGB CONC 34 % (32-36); MEAN CORPUSCULAR VOLUME 87 fL (79.0-98.0)
[2016-09-22 09:35] LABS: HEMATOCRIT 33.5 % (36-48); HEMOGLOBIN 11.2 g/dL (12.0-16.0); MEAN CORPUSCULAR HEMOGLOBIN 29 pg (27-31); PLATELET COUNT (AUTO) 110 K/uL (130-430); RED BLOOD CELL COUNT(AUTO) 3.86 MIL/uL (4.2-6.2)
[2016-09-22 09:36] LABS: BASOPHILS # (AUTO) 0.4 K/uL (0.0-0.2); LYMPHOCYTES # (AUTO) 1.4 K/uL (1.0-5.5); LYMPHOCYTES % (AUTO) 3.1 % (20.5-51.5); MONOCYTES % (AUTO) 1.9 % (1.7-9.3); RED CELL DISTRIBUTION WIDTH 14.2 % (9.0-15.0)
[2016-09-22 09:38] LABS: WHITE BLOOD COUNT (AUTO) 43.6 K/uL (4.8-10.8)
--- NOTE | 2016-09-22 09:45 | NUR ---
CRITICAL LAB OF URINE CULTURE AND REPEAT WBC. ROUNDS TO PATIENT. NEEDS MET. REPOSITION.
--- NOTE | 2016-09-22 09:48 | NUR ---
CRITICAL LABS REVIEWED WITH DOCTOR NAYAK REQUESTS TO HAVE CALL FOR INTERVENTION ON WBC AND URINE CULTURE.
--- NOTE | 2016-09-22 09:54 | NUR ---
CRITICAL LABS CONVEYED TO DOCTOR GENAO. NEW ORDERS PLACED.
--- NOTE | 2016-09-22 10:02 | NUR ---
FAMILY MEMBER OF PATIENT AT BEDSIDE NOTES SEIZURE MORE FREQUENT. SMALL SHAKING OF HANDS. PATIENT STARES AT TRANSFUSION NURSE CANNOT VERBALIZE IS HER BASELINE. THINKS ATIVAN WOULD BENEFIT TO REDUCE SHAKING AND POSSIBLY IBUPROFEN A GOOD IDEA FOR THE PATIENT IF PAIN IS THE ISSUE. WILL CALL TO MD TO OBTAIN FURTHER ADVICE/ORDERS.
[2016-09-22] MEDS ORDERED: LORazepam 2 MG/ML VIAL IVP ONE (10:15)
[2016-09-22] MEDS ORDERED: LORazepam 2 MG/ML VIAL IVP PRN (10:15)
[2016-09-22] MEDS ORDERED: metroNIDAZOLE 500 mg/NS 100 ML IV ONE (10:15)
[2016-09-22] MEDS ORDERED: IBUPROFEN 600 MG TABLET PO PRN (10:15)
[2016-09-22] MEDS ORDERED: POTASSIUM CHLORIDE 20 MEQ TAB.PRT.SR PO ONE (10:30)
--- NOTE | 2016-09-22 10:43 | NUR ---
CALL TO DOCTOR NAYAK FOR SEPSIS PROTOCOL AND ICU BED AND BOTH ORDERS NOT RECEIVED AT THIS TIME. CALL TO DOCTOR LIZETT FOR MORNING EVENTS AND WANTS A SALMERON NOW. PATIENT HAD PUS COMING FROM RIGHT KIDNEY YESTERDAY DURING SURGERY.
--- NOTE | 2016-09-22 11:15 | NUR ---
PATIENT ROUNDS FOR HANDOFF TO LUNCH. GIVEN ATIVAN AND EXPLAINED PATIENT WOULD RELAX TO DAUGHTER AT BEDSIDE. VERBALIZE UNDERSTANDING THAT THE POTASSIUM AND IBUPROFEN ARE NOT CRITICAL IF WELL MIRILAX PATIENT SEIZURE AND WHITE BLOOD CELLS ARE ADDRESSED. DAUGHTER VERBALIZED UNDERSTANDING.
--- NOTE | 2016-09-22 11:20 | NUR ---
Rounds Patient sleeping but arousable with petit mal tremors to both arms , ativan was given earlier, vitals sign taken wnl , recorded in the flow sheet, NGOZI Obando/ charge nurse in the room , offered to reposition patient , daughter said live her alone let her rest ,kept the room dim , half way close the room , will continue to monitor.
--- NOTE | 2016-09-22 11:30 | NUR ---
MD rounds Seen and examined by the admitting Dr. Milagro rivers, and ordered patient needs to be transfer to ICU due to seizure and sepsis, patient is deep sleep ,rapid response was called immediate assessment intervention was done blood sugar, vitals sign ,transfer to ICU AT 1150 hour., report given to Anna.
--- NOTE | 2016-09-22 11:55 | NUR ---
Transfer to ICU Received pt to room 5, obtunded. Responsive to sternal rub. On o2 2L via nasal canula. Padded siderails. Will continue to monitor.
[2016-09-22] MEDS ORDERED: PHENYTOIN SODIUM INJ 500 MG in NS 50 ML IV ONE (12:00)
[2016-09-22] MEDS ORDERED: PIPERACILLIN/TAZO 3.375/DEX-IS 50 ML IV SCH (12:15)
--- NOTE | 2016-09-22 12:25 | NUR ---
Spoke with Dr. Ac Ruiz to clarify order for Zosyn since pt is allergic to Penicillins. MD asked me to ask daughter if it is true allergy or not. Daughter not at bedside at this time.
--- NOTE | 2016-09-22 12:32 | NUR ---
consult for dr. william called spoke to azra dialed [phone]
--- NOTE | 2016-09-22 13:10 | NUR ---
VISIT TO PATIENT AND GIVEN POTASSIUM AND IBUPROFEN WITH MIRALAX AT REQUEST OF ICU NURSE IF AWAKE. SUGGEST FOR NECTAR THICK LIQUID PATIENT COUGH AT END OF ADMIN AND POCKETS FOR 15 SECONDS. PROMOTED DEEP BREATHING AGAIN. PATIENT USES PURSE LIPPED BREATHING TECHNIQUE. NOT ABLE TO UTILIZE INCENTIVE SPIROMETER.
--- NOTE | 2016-09-22 13:37 | NUR ---
Consultation called for Dr Chika Perez
[2016-09-22] MEDS ORDERED: metroNIDAZOLE 500 mg/NS 100 ML IV SCH (14:00)
--- NOTE | 2016-09-22 14:20 | NUR ---
Bp = 72/43 Dr. Uma Sloan @ bedside ordered NS 500ml bolus verbally. Per MD he will enter the order. Pt still unarousable except to deep stimuli. at bedside aware. Explained the NS bolus.
[2016-09-22] MEDS ORDERED: NS 500 ML IV ONE ×2 (14:30→14:45)
[2016-09-22] MEDS ORDERED: VANCOMYCIN HCL 1,000 MG in NS 250 ML IV SCH (15:00)
[2016-09-22 15:38] LABS: INR 1.3 (0.8-1.2); PROTHROMBIN TIME 14.3 SECS (9.5-12.5)
--- NOTE | 2016-09-22 15:40 | NUR ---
Seen by Dr. Vaughn in CT scan where pt was brought by Mamadou, Radiology and myself.
[2016-09-22] MEDS ORDERED: COMMUNICATION ORDER XX ONE (16:00)
[2016-09-22] MEDS ORDERED: methylPREDNISolone SOD SUCC/PF 62.5 MG/ML VIAL IVP SCH (16:00)
[2016-09-22] MEDS: metroNIDAZOLE 500 mg/NS 100 ML IV SCH ×2 (16:05→22:32)
[2016-09-22] MEDS: GENTAMICIN 80 MG/ ISO-OSM 100 ML PREMIX IV SCH (16:06)
[2016-09-22] MEDS ORDERED: [UNRECOGNIZED DRUG - OTHER] IV ONE (17:00)
[2016-09-22] MEDS ORDERED: NORMAL SALINE IV ONE (17:00)
[2016-09-22] MEDS: NACL 0.9% 1,000 ML IV SCH (17:55)
--- NOTE | 2016-09-22 18:00 | NUR ---
Spoke with the daughter and updated re: pt's condition.
[2016-09-22 18:23] LABS: HEMATOCRIT 29.5 % (36-48); HEMOGLOBIN 10.1 g/dL (12.0-16.0); MEAN CORPUSCULAR HEMOGLOBIN 29 pg (27-31); MEAN CORPUSCULAR HGB CONC 34 % (32-36); MEAN CORPUSCULAR VOLUME 86 fL (79.0-98.0); PLATELET COUNT (AUTO) 97 K/uL (130-430); RED BLOOD CELL COUNT(AUTO) 3.42 MIL/uL (4.2-6.2); RED CELL DISTRIBUTION WIDTH 14.1 % (9.0-15.0)
[2016-09-22 18:35] LABS: WHITE BLOOD COUNT (AUTO) 36.9 K/uL (4.8-10.8)
[2016-09-22 18:37] LABS: ANION GAP 5 (5-15); GLUCOSE 173 mg/dL (70-99); POTASSIUM 3.9 mmol/L (3.5-5.1); UREA NITROGEN, BLOOD 25 mg/dL (8-21)
[2016-09-22 18:48] LABS: CHLORIDE 108 mmol/L (98-107); SODIUM SERUM 137 mmol/L (136-145)
[2016-09-22 18:50] LABS: BAND % (MANUAL) 31 % (0-6); BASOPHILS % (MANUAL) 0 % (0-2); EOSINOPHILS % (MANUAL) 0 % (0-7); LYMPHOCYTES % (MANUAL) 5 % (20-46); METAMYELOCYTES % 1 % (0-0); MONOCYTES % (MANUAL) 2 % (0-11)
[2016-09-22 18:53] LABS: CALCIUM 6.8 mg/dL (8.4-11.0)
--- NOTE | 2016-09-22 19:15 | NUR ---
Report given to Naty and endorsed all care.
--- NOTE | 2016-09-22 20:00 | NUR ---
ASSESSMENT Pt alert, opens eyes to verbal stimulus. Pt non verbal. Oxygen in use 2L/min NC. Pt O2 saturation greater than 97%. 2 IV sites present bilateral hands 20ga, both patent no redness or swelling noted @ sites. Ramires in use, draining dark chong color urine. Skin intact no redness noted on buttocks area.
[2016-09-22] MEDS ORDERED: levETIRAcetam 500 MG in NS 100 ML IV SCH (21:00)
--- NOTE | 2016-09-22 22:00 | NUR ---
PICC PICC line inserted, dressing dry and intact. Ok to use given by PICC RN. All IV tubings changed.
[2016-09-22] MEDS ORDERED: CALCIUM GLUCONATE 1 GM in NS 100 ML IV ONE (22:30)
[2016-09-22] MEDS: levETIRAcetam 750 MG in NS 100 ML IV SCH (22:32)
[2016-09-22] MEDS ORDERED: CALCIUM GLUCONATE 1 GM/10 ML VIAL ONE (23:03)
[2016-09-22] MEDS: SIMVASTATIN 40 MG TABLET PO SCH (23:45)
[2016-09-23] VITALS (24 sets, daily range): BP systolic 108–194; BP diastolic 48–93; PULSE 56–72; RESP 9–18; TEMP 97.1–98.8; O2SAT 94–100
[2016-09-23] MEDS: NACL 0.9% 1,000 ML IV SCH ×4 (04:34→20:18)
[2016-09-23] MEDS: TIGECYCLINE 50 MG in NS 100 ML IV SCH ×2 (05:47→17:58)
[2016-09-23] MEDS: metroNIDAZOLE 500 mg/NS 100 ML IV SCH ×3 (05:47→22:16)
[2016-09-23 06:46] LABS: HEMATOCRIT 28.9 % (36-48); HEMOGLOBIN 9.8 g/dL (12.0-16.0); MEAN CORPUSCULAR HEMOGLOBIN 30 pg (27-31); MEAN CORPUSCULAR HGB CONC 34 % (32-36); MEAN CORPUSCULAR VOLUME 88 fL (79.0-98.0); PLATELET COUNT (AUTO) 128 K/uL (130-430); RED BLOOD CELL COUNT(AUTO) 3.27 MIL/uL (4.2-6.2); RED CELL DISTRIBUTION WIDTH 13.9 % (9.0-15.0)
[2016-09-23 06:56] LABS: ALANINE AMINOTRANSFERASE 28 U/L (12-78); ALBUMIN 1.7 g/dL (3.4-4.8); ANION GAP 7 (5-15); ASPARTATE AMINOTRANSFERASE 25 U/L (10-37); CALCIUM 7.3 mg/dL (8.4-11.0); CHLORIDE 112 mmol/L (98-107); CREATININE 0.85 mg/dL (0.55-1.30); GLUCOSE 112 mg/dL (70-99); POTASSIUM 3.7 mmol/L (3.5-5.1); SODIUM SERUM 143 mmol/L (136-145); TOTAL BILIRUBIN 0.4 mg/dL (0.0-1.0); TOTAL PROTEIN, SERUM 5.2 g/dL (6.4-8.3); UREA NITROGEN, BLOOD 31 mg/dL (8-21)
[2016-09-23 07:19] LABS: WHITE BLOOD COUNT (AUTO) 32.7 K/uL (4.8-10.8)
--- NOTE | 2016-09-23 07:35 | NUR ---
ENDORSEMENT Pt care was endorsed to KAVYA Mantilla using nursing SBAR at bedside.
[2016-09-23] MEDS: CITALOPRAM HYDROBROMIDE 20 MG TABLET PO SCH (08:26)
[2016-09-23] MEDS: ASPIRIN 81 MG TAB.CHEW PO SCH (08:26)
[2016-09-23] MEDS: levETIRAcetam 750 MG in NS 100 ML IV SCH ×2 (08:28→21:29)
--- NOTE | 2016-09-23 08:30 | NUR ---
DR RODRIGUEZ IN TO SEE PT. MANUAL DISIMPACTION DONE BY DR RODRIGUEZ FOR A SMALL AMT OF SOFT BROWN STOOL. DIFFICULT FOR HIM TO OBTAINS TOLL DUE TO NOT BEING HARD.
--- NOTE | 2016-09-23 09:30 | NUR ---
DR RENO IN TO SEE PT. SPOKE WITH PTS DAUGHTER AT THE BEDSIDE. PT'S DAUGHTER VERY CONCERNED THAT HER MOTHER HAS BEEN HAVING PAIN FOR THE PAST 2 YEARS WHEN IN FACT IT "COULD HAVE BEEN HER HYDRONEPHROSIS ALL THIS TIME". DR RENO INFORMED HER THAT IT WAS HIGHLY UNLIKELY THAT SHE HAD BEEN HAVING PAIN ALL THIS TIME BUT THAT HE WAS THE NEUROLOGIST AND THAT IF SHE WAS CONCERNED ABOUT THAT , SHE SHOULD TALK TO THE ATTENDING MD OR UROLOGIST.
[2016-09-23 09:31] LABS: ATYPICAL LYMPHOCYTES % 0 % (0-0); BAND % (MANUAL) 5 % (0-6); BASOPHILS % (MANUAL) 0 % (0-2); EOSINOPHILS % (MANUAL) 1 % (0-7); LYMPHOCYTES % (MANUAL) 8 % (20-46); MONOCYTES % (MANUAL) 3 % (0-11)
--- NOTE | 2016-09-23 10:10 | NUR ---
TO CT VIA BED WITH ACLS PROTOCOL. WHILE DOWN IN CT PT HAD A 30 SECOND GRAND MAL SEIZURE.
[2016-09-23] MEDS ORDERED: MAGNESIUM CITRATE 300 ML ORAL SOLUTION PO ONE (10:15)
[2016-09-23] MEDS ORDERED: MINERAL OIL 133 ML ENEMA RC ONE (10:15)
--- NOTE | 2016-09-23 10:30 | NUR ---
RETURNED FROM CT VIA BED USING ACLS PROTOCOL.
--- NOTE | 2016-09-23 10:55 | NUR ---
NG TUBE INSERTED TO LEFT NARE WITHOUT PROBLEMS. PLACEMENT VERIFIED. HOB UP. PT REMAINS LETHARGIC AND UNABLE TO EAT. DAUGHTER AT BEDSIDE AND ASKED ABOUT HER MEDS AND BREAKFAST. SHE STATED THAT SHE WAS "MUCH SICKER YESTERDAY AND I GOT HER TO EAT HER BREAKFAST". I OFFERED TO GIVE HER SOME APPLESAUCE SO SHE COULD TRY. PTS DAUGHTER DECLINED AND LEFT.
[2016-09-23] MEDS: TRIHEXYPHENIDYL HCL 2 MG TABLET (ARTANE) PO SCH (12:12)
[2016-09-23] MEDS: NS IV SCH ×2 (12:16→21:30)
[2016-09-23] MEDS: VALPROATE SODIUM IV SCH ×2 (12:16→21:30)
--- NOTE | 2016-09-23 13:52 | NUR ---
CALL OUT TO DR NAYAK REGARDING PAIN.
--- NOTE | 2016-09-23 14:41 | NUR ---
SPOKE WITH DR BOYCE REGARDING PTS DAUGHTER WANTING HER MOM TO HAVE PAIN MEDS. ORDERS LEFT.
[2016-09-23] MEDS ORDERED: MORPHINE 2 MG/ML INJ. SYRINGE IVP PRN (14:45)
[2016-09-23] MEDS: GENTAMICIN 80 MG/ ISO-OSM 100 ML PREMIX IV SCH (15:15)
[2016-09-23] MEDS: POLYETHYLENE GLYCOL 3350, 17 GM/ POWD.PACK PO SCH (15:16)
--- NOTE | 2016-09-23 16:31 | NUR ---
CHG BATH DONE PT HAD SMALL SOFT BROWN STOOL. PERICARE DONE. Z-GUARD APPLIED. REPOSITIONED IN BED. HEELS LIFTED OFF BED WITH PILLOWS. TUBE FEEDING INFUSING AT 30CC/HR. PT HAD EYES OPEN FOR PERSONAL CARE. SINUS RHYTHM ON MONITOR. BP STABLE.
--- NOTE | 2016-09-23 18:00 | NUR ---
REPOSITIONED IN BED. HEELS LIFTED OFF BED. SR ON MONITOR. RATE 62. VSS. NO FURTHER SEIZURE ACTIVITY NOTED.
--- NOTE | 2016-09-23 19:29 | NUR ---
DR GENAO IN TO SEE PT. ORDERS LEFT.
--- NOTE | 2016-09-23 19:30 | NUR ---
PM SHIFT ASSESSMENT Pt is lying in bed with eyes open, unable to make needs known r/t to past CVA, pt is aphasic and responds to verbal stimulation by making eye contact. Pt is on isolation for ESBL of urine and blood. Pt is on 2L NC, tolerating O2 well, no signs of respiratory distress. SR noted on monitor. PICC line to CAITLYN, double lumen, dressing is clean, dry and intact with IVF running. Ramires catheter draining yellow urine to gravity. Skin is intact. NG tube to left nare, feeding @ 35ml/hr, no residual. Safety measures in place, call light is within reach. Will continue to monitor.
--- NOTE | 2016-09-23 19:45 | NUR ---
Dr. Sloan here, evaluating pt.
--- NOTE | 2016-09-23 20:15 | NUR ---
Dr. Ruiz here, evaluating pt.
--- NOTE | 2016-09-23 20:15 | NUR ---
Dr. Coon here, evaluating pt. Dr Coon made aware of high blood pressure, orders were received and carried out.
[2016-09-23] MEDS ORDERED: LISINOPRIL 10 MG TABLET (PRINIVIL) PO ONE (20:45)
[2016-09-23] MEDS: SIMVASTATIN 40 MG TABLET PO SCH (21:30)
[2016-09-24] VITALS (25 sets, daily range): BP systolic 111–207; BP diastolic 48–101; PULSE 64–98; RESP 14–30; TEMP 96.9–98.8; O2SAT 95–100
[2016-09-24] MEDS: cloNIDine HCL 0.1 MG TABLET PO PRN ×3 (00:13→18:09)
[2016-09-24] MEDS: metroNIDAZOLE 500 mg/NS 100 ML IV SCH ×3 (06:03→22:46)
[2016-09-24] MEDS: TIGECYCLINE 50 MG in NS 100 ML IV SCH ×2 (06:03→17:29)
[2016-09-24 06:37] LABS: BASOPHILS % (AUTO) 0.1 % (0.0-2.0); EOSINOPHILS # (AUTO) 0.4 K/uL (0.0-0.4); EOSINOPHILS % (AUTO) 1.7 % (0.0-4.0); HEMATOCRIT 31.8 % (36-48); HEMOGLOBIN 10.6 g/dL (12.0-16.0); LYMPHOCYTES # (AUTO) 1.1 K/uL (1.0-5.5); LYMPHOCYTES % (AUTO) 4.7 % (20.5-51.5); MEAN CORPUSCULAR HEMOGLOBIN 30 pg (27-31); MEAN CORPUSCULAR HGB CONC 34 % (32-36); MEAN CORPUSCULAR VOLUME 88 fL (79.0-98.0); MONOCYTES # (AUTO) 0.4 K/uL (0.0-1.0); MONOCYTES % (AUTO) 1.8 % (1.7-9.3); NEUTROPHILS # (AUTO) 21.4 K/uL (1.8-7.7); NEUTROPHILS % (AUTO) 91.7 % (40.0-70.0); PLATELET COUNT (AUTO) 151 K/uL (130-430); RED CELL DISTRIBUTION WIDTH 14.6 % (9.0-15.0); WHITE BLOOD COUNT (AUTO) 23.3 K/uL (4.8-10.8)
[2016-09-24 06:50] LABS: ALANINE AMINOTRANSFERASE 23 U/L (12-78); ALBUMIN 1.8 g/dL (3.4-4.8); ANION GAP 9 (5-15); ASPARTATE AMINOTRANSFERASE 15 U/L (10-37); CALCIUM 7.2 mg/dL (8.4-11.0); CHLORIDE 113 mmol/L (98-107); CREATININE 0.81 mg/dL (0.55-1.30); GLUCOSE 180 mg/dL (70-99); POTASSIUM 3.4 mmol/L (3.5-5.1); SODIUM SERUM 146 mmol/L (136-145); TOTAL BILIRUBIN 0.3 mg/dL (0.0-1.0); TOTAL PROTEIN, SERUM 4.8 g/dL (6.4-8.3); VALPROIC ACID 20 ug/mL (50-100)
[2016-09-24 07:05] LABS: UREA NITROGEN, BLOOD 28 mg/dL (8-21)
--- NOTE | 2016-09-24 07:25 | NUR ---
ENDORSEMENT Endorsed pt care to KAVYA Aranda using nursing SBAR at bedside.
--- NOTE | 2016-09-24 07:50 | NUR ---
AM ASSESSMENT. TEMP AFEBRILE THIS SHIFT, DROWSY, RESPONSIVE TO PAINFUL STIMULI, REPOSITIONED IN BED, INCONTINENT OF BOWEL, SMALL AMOUNT OF LOOSE STOOL, PERINEAL CARE RENDERED, Z-GUARD APPLIED TO BUTTOCKS, SOME SWELLING TO BOTH FEET, LOWER EXTREMITIES ELEVATED ON PILLOW TO REDUCE EDEMA, SEIZURE PRECAUTION MAINTAINED, NGT FEEDING AT 35 ML PER HR, HEAD OF BED AT 45 DEGREE ANGLE, CONTINUE TO MONITOR.
[2016-09-24] MEDS: VALPROATE SODIUM IV SCH ×2 (09:10→20:25)
[2016-09-24] MEDS: NS IV SCH ×2 (09:10→20:25)
[2016-09-24] MEDS: TRIHEXYPHENIDYL HCL 2 MG TABLET (ARTANE) PO SCH (09:11)
[2016-09-24] MEDS: CITALOPRAM HYDROBROMIDE 20 MG TABLET PO SCH (09:11)
[2016-09-24] MEDS: ASPIRIN 81 MG TAB.CHEW PO SCH (09:11)
[2016-09-24] MEDS: LISINOPRIL 10 MG TABLET (PRINIVIL) PO SCH (09:12)
[2016-09-24] MEDS: POLYETHYLENE GLYCOL 3350, 17 GM/ POWD.PACK PO SCH (09:12)
[2016-09-24] MEDS ORDERED: POTASSIUM CHLORIDE 40 MEQ in D5W 250 ML IV ONE (09:30)
[2016-09-24] MEDS: 0.45% NACL 1,000 ML IV SCH ×2 (09:35→09:38)
--- NOTE | 2016-09-24 10:05 | NUR ---
TO CT SCAN. TRANSPORTED TO RADIOLOGY DEPT VIA PORTABLE CARDIAC MONITORING, WITH PORTABLE O2 TANK IN USE.
--- NOTE | 2016-09-24 10:25 | NUR ---
TO ICU. BROUGHT PT BACK TO ROOM 5, RESUMED CURRENT TREATMENTS.
[2016-09-24] MEDS: levETIRAcetam 750 MG in NS 100 ML IV SCH ×2 (10:42→20:26)
--- NOTE | 2016-09-24 11:58 | NUR ---
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 Alzheimer's dementia, dysphagia, HLD, psychotic disorder per MD notes Subjective Information 09/20/16 ST Swallow Eval: ST rec: puree diet; thin liquids ok; monitor for adequate intakes. Pt seen resting in bed, +aphasic, +confused, +disoriented, and TF infusing via NGT at 35 ml/hr; 85 ml infused at time of RD visit, providing 128 kcal. Per RN, pt has been tolerating TF well w/ no residuals, and small amount of loose BM, likely r/t miralax. RN reported that pt had an episode of seizure last night, and has been trying to control sepsis w/ IV abx. RN reported that pt also had a repeat CT head/brain today; which revealed no significant results per EMR. Pt pending transfer to telemetry unit per RN report. Per EMR, TF Intakes: 280 ml 09/24/16. Residuals: 2 ml 09/24/16. Abd is soft and distended w/ active bowel sounds. I/O: 1600/1950 (-350 ml) per 12 hours. Pt is not yet meeting optimal nutritional needs. Pt is not appropriate for nutrition education. Current Diet Order/Nutrition Support Isosource 1.5 at 35 ml/hr via GT x1 day Provides: 1260 kcal/day, 57 gm protein/day, and 642 ml free water/day Meets: 102% of lower end of estimated caloric needs and 109% of lower end of estimated protein needs Patient/Significant Other Unable To Verbalize Education Provided Indicated Pertinent Medications miralax, gentamicin/NaCl IV Pertinent Labs WBC 23.3 H, BG 180 H, ALB 1.8 L Height (Feet) 4 feet Height (Inches) 11.00 inches Weight (Pounds) 117 pounds (admission) BEDSCALE WT: 168 lb, 76 (09/24/16) -- likely inaccurate as pt is on an air mattress Weight (Calculated Kilograms) 53.992252 kilograms Patient Weight 53.07 kg Body Mass Index 23.63 kg/m2 %IBW 118 [place]/Adjusted Body Weight IBW: 98 lb, 45 kg Recent Weight Change Unknown Weight Status Underweight Gastrointestinal Symptoms None Last BM Sep 23, 2016 x3 Food Allergies Unknown Usual Diet At Home [facility]: Regular diet, pureed texture, thin consistency Skin Integrity Comment: Kareem scale: 11. Per Construction Plumber note 09/21/16: skin is fair; pt is incontinent of bowel and bladder Current % PO None Estimated Energy Expenditure (kcals/day) 2215-7961 kcal/day (BEE x 1.2-1.5 CBW for sepsis) Estimated Protein Required (g/day) 80-106 gm/day (1.5-2 gm/kg CBW for sepsis) Estimated Fluid Required (l/day) 1.6-1.9 L/day (30-35 kcal/kg CBW for geriatric maintenance) Problem/Etiology/Signs/Symptoms Increased nutritional needs related to metabolic demands as evidenced by elevated WBC and estimated nutritional requirements. *ongoing Expected Outcomes/Goals - Monitor appetite and PO intakes w/ goal of pt meeting at least 50% of estimated nutritional needs, labs trending WNL, normal GI function, and skin integrity/wt maintenance *ongoing Dietitian Recommendations * Recommend Isosource 1.5 at 35 ml/hr, Prosource BID, Free Water Flush: 175 ml Q4h via NGT Provides: 1380 kcal/day, 87 gm protein/day, and 1692 ml free water/day Meets: 112% of lower end of estimated caloric needs and 109% of lower end of estimated protein needs Follow Up High Risk: F/U in 2-3 days
--- NOTE | 2016-09-24 12:00 | NUR ---
rounds accucheck was done and no hypo hyperglycemic reaction noted. turned repositioned for comfort. seen by dr kay and with orders.
--- NOTE | 2016-09-24 12:30 | NUR ---
rounds pt's was able to loosen up the left restraints and extubated herself and was coughing forecefully. dr erika farris md and dr gunderson came to see patient. suctioned patient obtaining large amount of whitish phlegm. pt was put on 4 liters nasal cannula as per dr gunderson and will continue to monitor Addendum: 09/24/16 at 1623 by Flora Cintron RN intended for another patient.
--- NOTE | 2016-09-24 12:30 | NUR ---
rounds pt was able to loosen up left restraints and extubated and was coughing forcefully. dr erika farris m and dr gunderson anesthesiologist came came to see patient. suctioned patient obtaining large amount of large amount of jelly like kind of phlegm. dr james and dr gunderson stated for patient to be on o2 at 4 liters and to observe patient.
--- NOTE | 2016-09-24 13:30 | NUR ---
HYGIENE. MODERATE AMOUNT OF SOFT STOOL NOTED WHEN PT WAS TURNED, SPONGE BATH WITH CHG WIPES USED, CLEANSED PERINEAL AREA WITH SOAPY TOWEL AND PAT DRY.
--- NOTE | 2016-09-24 13:45 | NUR ---
TO MRI DEPT. TAKEN VIA GURNEY TO MRI DEPT, CARDIAC MONITORING AND PORTABLE O2 VIA NASAL CANNULA.
--- NOTE | 2016-09-24 14:30 | NUR ---
TO ICU. RETURNED TO ROOM 5, WITHOUT PROBLEMS, NO SEIZURE ACTIVITY NOTED.
--- NOTE | 2016-09-24 15:30 | NUR ---
ASSUMED CARE. PT IN BED ASLEEP. NO ACUTE DISTRESS NOTED. WILL MONITOR.
[2016-09-24] MEDS: GENTAMICIN 80 MG/ ISO-OSM 100 ML PREMIX IV SCH (15:55)
--- NOTE | 2016-09-24 16:00 | NUR ---
rounds sleeping soundly at this time. no sob noted saturation is 99%. pt having breathing tx at bedside. no acute distress noted.
--- NOTE | 2016-09-24 16:30 | NUR ---
B/P B/P IS HIGH. CHARGE NURSE CLIFFORD CALLED DR. COLE AND MADE AWARE. NER ORDERS RECEIVED.
[2016-09-24] MEDS: ENALAPRILAT DIHYDRATE 1.25 MG/ML VIAL IVP PRN ×2 (16:46→20:27)
[2016-09-24] MEDS ORDERED: VANCOMYCIN HCL 1 GM/NS PREMIX 250 ML IV ONE (17:00)
--- NOTE | 2016-09-24 18:40 | NUR ---
VOMITING PT VOMITED AT THIS TIME. DR. NAYAK HERE AND MADE AWARE. FEEDING STOP ORDERED.
[2016-09-24] MEDS ORDERED: ONDANSETRON HCL 4 MG/2 ML VIAL IVP PRN (19:00)
[2016-09-24] MEDS ORDERED: ENALAPRILAT DIHYDRATE 1.25 MG/ML VIAL IVP ONE (19:15)
--- NOTE | 2016-09-24 19:20 | NUR ---
PM SHIFT ASSESSMENT Pt is lying in bed with eyes closed, pt is aphasic and sometimes nods yes or no when awake. Family at bedside. Pt is on isolation for ESBL of urine and blood. Pt is on 2L NC, tolerating O2 well, no signs of respiratory distress. SR noted on monitor. PICC line to CAITLYN, double lumen, dressing is clean, dry and intact with IVF running. Ramires catheter draining yellow urine to gravity. Skin is intact. Clamped NG tube to left nare, feeding has been stopped d/t vomiting during day shift. Safety measures in place, call light is within reach. Will continue to monitor.
[2016-09-24] MEDS: SIMVASTATIN 40 MG TABLET PO SCH (21:00)
[2016-09-25] VITALS (21 sets, daily range): BP systolic 100–188; BP diastolic 42–81; PULSE 74–88; RESP 14–31; TEMP 97.6–98.7; O2SAT 95–100
--- NOTE | 2016-09-25 00:10 | NUR ---
ROUNDS Pt is snoring in bed, resting. Vital signs are stable. Safety measures are in place, will continue to monitor.
[2016-09-25] MEDS: metroNIDAZOLE 500 mg/NS 100 ML IV SCH ×3 (06:01→22:46)
--- NOTE | 2016-09-25 06:30 | NUR ---
ROUNDS Pt had a bowel movement, pt tolerated partial bed bath well. Safety measures in place, will continue to monitor.
[2016-09-25 06:36] LABS: INR 1.3 (0.8-1.2)
[2016-09-25 06:50] LABS: BASOPHILS % (AUTO) 0.2 % (0.0-2.0); EOSINOPHILS # (AUTO) 0.1 K/uL (0.0-0.4); EOSINOPHILS % (AUTO) 0.8 % (0.0-4.0); HEMATOCRIT 35.7 % (36-48); HEMOGLOBIN 12.2 g/dL (12.0-16.0); LYMPHOCYTES # (AUTO) 0.8 K/uL (1.0-5.5); LYMPHOCYTES % (AUTO) 5.3 % (20.5-51.5); MEAN CORPUSCULAR HEMOGLOBIN 30 pg (27-31); MEAN CORPUSCULAR HGB CONC 34 % (32-36); MEAN CORPUSCULAR VOLUME 88 fL (79.0-98.0); MONOCYTES # (AUTO) 0.2 K/uL (0.0-1.0); MONOCYTES % (AUTO) 1.5 % (1.7-9.3); NEUTROPHILS # (AUTO) 14.9 K/uL (1.8-7.7); NEUTROPHILS % (AUTO) 92.2 % (40.0-70.0); PLATELET COUNT (AUTO) 136 K/uL (130-430); RED BLOOD CELL COUNT(AUTO) 4.08 MIL/uL (4.2-6.2); RED CELL DISTRIBUTION WIDTH 14.2 % (9.0-15.0)
[2016-09-25 07:13] LABS: ALANINE AMINOTRANSFERASE 20 U/L (12-78); ALBUMIN 1.9 g/dL (3.4-4.8); ASPARTATE AMINOTRANSFERASE 17 U/L (10-37); CALCIUM 7.6 mg/dL (8.4-11.0); CREATININE 0.77 mg/dL (0.55-1.30); GLUCOSE 146 mg/dL (70-99); TOTAL BILIRUBIN 0.5 mg/dL (0.0-1.0); TOTAL PROTEIN, SERUM 5.6 g/dL (6.4-8.3); UREA NITROGEN, BLOOD 19 mg/dL (8-21)
--- NOTE | 2016-09-25 07:17 | NUR ---
ENDORSEMENT Pt care was endorsed to KAVYA Berry using nursing SBAR at bedside.
--- NOTE | 2016-09-25 07:45 | NUR ---
AM ROUNDS PATIENT RESTING IN BED, EYES CLOSED, BREATHING IS EVEN AND UNLABORED, NO SIGNS OF DISTRESS, PATIENT TURNS HEAD WHEN HER NAME IS CALLED AND LOCALIZES TO PAIN, ASSESSMENT COMPLETE, NASOGASTRIC TUBE IN PLACE IN THE LEFT NARE, PATIENT IS NPO FOR PEG PLACEMENT TODAY WITH DR KHAN, FAMILY IS AWARE, SALMERON CATHETER IN PLACE, DRAINING TO GRAVITY, DRAINING CLEAR, YELLOW URINE AT THIS TIME, SEIZURE PRECAUTIONS IN PLACE, BED IN LOWEST POSITION, ASPIRATION PRECAUTIONS IN PLACE, WILL CONTINUE TO MONITOR. Addendum: 09/25/16 at 1140 by Jamal Pool RN ISOLATION PRECAUTIONS ALSO IN PLACE.
[2016-09-25] MEDS: ASPIRIN 81 MG TAB.CHEW PO SCH (08:25)
[2016-09-25] MEDS: TRIHEXYPHENIDYL HCL 2 MG TABLET (ARTANE) PO SCH (08:25)
[2016-09-25] MEDS: CITALOPRAM HYDROBROMIDE 20 MG TABLET PO SCH (08:26)
[2016-09-25] MEDS: POLYETHYLENE GLYCOL 3350, 17 GM/ POWD.PACK PO SCH (08:26)
[2016-09-25] MEDS: LISINOPRIL 10 MG TABLET (PRINIVIL) PO SCH ×2 (08:26→16:05)
[2016-09-25] MEDS: NS IV SCH ×2 (08:34→20:54)
[2016-09-25] MEDS: VALPROATE SODIUM IV SCH ×2 (08:34→20:54)
[2016-09-25 08:38] LABS: CHLORIDE 110 mmol/L (98-107)
--- NOTE | 2016-09-25 08:45 | NUR ---
CHG BATH GIVEN AT THIS TIME, PATIENT WAS TURNED AND REPOSITIONED ALSO.
[2016-09-25 08:51] LABS: ANION GAP 9 (5-15); POTASSIUM 3.1 mmol/L (3.5-5.1); SODIUM SERUM 146 mmol/L (136-145)
[2016-09-25] MEDS: 0.45% NACL 1,000 ML IV SCH (09:30)
[2016-09-25] MEDS ORDERED: POTASSIUM CHLORIDE 40 MEQ in D5W 250 ML IV ONE (09:30)
--- NOTE | 2016-09-25 09:32 | NUR ---
DR COLE AT THE BEDSIDE, ASSESSING THE PATIENT, IS AWARE OF ELEVATED BLOOD PRESSURES, WILL FOLLOW UP WITH ANY NEW ORDERS.
--- NOTE | 2016-09-25 09:45 | NUR ---
FAMILY AT BEDSIDE DISCUSSED PLAN OF CARE, CONTINUING TO ANSWER QUESTIONS AND EDUCATE THE FAMILY.
[2016-09-25] MEDS: levETIRAcetam 750 MG in NS 100 ML IV SCH ×2 (10:18→20:18)
[2016-09-25] MEDS: ENALAPRILAT DIHYDRATE 1.25 MG/ML VIAL IVP PRN ×2 (11:11→20:08)
--- NOTE | 2016-09-25 11:14 | NUR ---
HIGH BLOOD PRESSURE OF 192/92 NOTED, BLOOD PRESSURE REASSESSED AT 179/82, VASOTEC IV GIVEN, WILL CONTINUE TO MONITOR , FAMILY IS AT THE BEDSIDE, BED IN LOWEST POSITION, SEIZURE AND ASPIRATION PRECAUTIONS IN PLACE. Addendum: 09/25/16 at 1140 by Jamal Pool RN ISOLATION PRECAUTIONS ALSO IN PLACE.
--- NOTE | 2016-09-25 11:53 | NUR ---
DISCHARGE PLANNING DC Planning order for LTAC evaluation. Called and spoke with patient daughter Yeimy Shea [phone] who is agreeable with evaluation for [facility]. Yeimy requested placement at [place] location as it is close to her home. Yeimy was made aware DCP will keep her informed on discharge planning. Faxed DC Planning order to [facility] office [phone]. Notified Nigel Jewell who will evaluate patient today. Addendum: 09/25/16 at 1232 by Ericka TONG Spoke with Fanta at [facility] patient accepted [facility] and will give bed assignment upon discharge order. JENNA Hall made aware.
[2016-09-25] MEDS ORDERED: MIDAZOLAM HCL 5 MG/5 ML VIAL ONE ×2 (12:20)
[2016-09-25] MEDS ORDERED: fentaNYL CITRATE/PF 100 MCG/2 ML AMP ONE (12:20)
[2016-09-25] MEDS: cloNIDine HCL 0.1 MG TABLET PO PRN (12:38)
--- NOTE | 2016-09-25 13:30 | NUR ---
SPOKE WITH PHARMACY REGARDING IV VANCOMYCIN TO BE GIVEN 30 MINUTES PRIOR TO PEG PLACEMENT TODAY, CHRISTINA PHARMACIST TO FOLLOW UP WITH ORDER.
--- NOTE | 2016-09-25 13:36 | NUR ---
RN ROUNDS PATIENT RESTING IN BED, BREATHING IS EVEN AND UNLABORED, NO SIGNS OF DISTRESS AT THIS TIME, FAMILY IS AT BEDSIDE, BLOOD PRESSURE 172/70 AFTER CLONIDINE AND LISINOPRIL ADMINISTRATION, URINE OUT PUT MEASURED TO BE 800ML AT THIS TIME, BED IN LOWEST POSITION, THREE SIDE RAILS UP, BED ALARM ON, SEIZURE, FALL, ASPIRATION AND ISOLATION PRECAUTIONS IN PLACE, WILL CONTINUE TO MONITOR.
[2016-09-25] MEDS ORDERED: SIMETHICONE 40 MG/0.6 ML ML ONE (14:17)
--- NOTE | 2016-09-25 14:30 | NUR ---
RECEIVED REPORT FROM RN TO ASSUME CARE. PT LETHARGIC BUT AROUSES TO STIMULUS. SR ON MONITOR. BP STABLE AT THIS TIME. WILL CONTINUE TO MONITOR.
[2016-09-25] MEDS ORDERED: MIDAZOLAM HCL 5 MG/5 ML VIAL IVP ONE (15:15)
--- NOTE | 2016-09-25 15:35 | NUR ---
ASSUMED CARE OF PT POST PEG PLACEMENT AT BEDSIDE. BP 193/81 HR 90. RR 25 AND SATS 97%. NO BLEEDING NOTED TO SITE. SR ON MONITOR. WILL CONTINUE TO WATCH.
--- NOTE | 2016-09-25 15:40 | NUR ---
SR ON MONITOR. SATS 97%. PT AROUSABLE TO DEEP STIMULUS. NO BLEEDING TO SITE. WILL CONTINUE TO MONITOR. PT IN NO DISTRESS.
--- NOTE | 2016-09-25 15:45 | NUR ---
Kareem Re-Evaluation: Wound Consult ordered for Low Kareem Score. Patient re-evaluated for a low Kareem score of 13. Patient was lethargic, and received in a Brisa Bed with an IsoFlex FLORENCE mattress with low air-loss therapy initiated. Patient needs to be turned in bed. Skin is Fair; Patient is incontinent of bowel and bladder. Recommend reposition patient every 2 hours with pillow support. Elevate, off-load and float bilateral heels with pillows. Offload pressure areas with pillows for pressure re-distribution. Perform skin care and monitor skin integrity Q shift. Use moisture barrier cream on moisture susceptible areas QID and PRN for soiling. Maintain patient on a low air-loss mattress. Will continue to follow as a Kareem.
--- NOTE | 2016-09-25 16:00 | NUR ---
PT IN NO DISTRESS. SATS 97%. BP145/65. NO ACTIVE BLEEDING. WILL CONTINUE TO MONITOR.
[2016-09-25] MEDS: GENTAMICIN 80 MG/ ISO-OSM 100 ML PREMIX IV SCH (16:07)
--- NOTE | 2016-09-25 19:00 | NUR ---
PT TRANSFERRED TO [facility]. CALL VALENZUELA IN REACH.
--- NOTE | 2016-09-25 19:30 | NUR ---
REPORT GIVEN TO AIRPORT SKILLED MAINTENANCE SUPERVISOR RN.
--- NOTE | 2016-09-25 19:50 | NUR ---
Initial Note Patient in bed at this time resting, patient is lethargic. Patient is able to wake up with touch. Respirations even and unlabored. Abdominal binder in place. Gtube in place. Ramires in place, draining to gravity. PICC line patent, IV infusing as ordered. Call light in hand. Educated to use call light for assistance, verbalized understanding. Fall and safety precautions. Will continue to monitor.
[2016-09-25] MEDS: SIMVASTATIN 40 MG TABLET PO SCH (20:18)
--- NOTE | 2016-09-25 21:07 | NUR ---
BLOOD PRESSURE Blood pressure noted to lower to 165/70, from 186/87 after administration of PRN blood pressure medication of Vasotec, intervention effective.
--- NOTE | 2016-09-25 23:11 | NUR ---
RN ROUNDS Patient in bed at this time resting, respirations even and unlabored. No acute distress noted at this time. No acute distress noted at this time. Patient in no apparent pain or discomfort at this time, no facial grimacing noted. Call light in hand. Fall and safety precautions in place. Will continue to monitor.
--- NOTE | 2016-09-26 00:25 | NUR ---
Gtube feeding Endorsed patient to Prudence HOFF. Started patient on gtube feeding as ordered per MD. Endorsed the care and the monitoring. Patient is stable, respirations even and unlabored. NO acute distress noted at this time. Patient in no apparent pain.
--- NOTE | 2016-09-26 00:30 | NUR ---
RN Note Assumed nursing care of pt after report was obtained from nurse Garrido. Pt was received lying in bed non-verbal. No acute distress noted. IVF is infusing well via CAITLYN PICC with the dressing dry and intact. G Tube feeding of Isosource 1.5 is in progress at 35ml/hr. G tube site dressing is dry and intact with abdominal binder in place. HOB is elevated 45 degrees to prevent aspiration. Ramires Catheter to gravity drainage is patent with clear yellowish urine. Fall and safety precautions are in place. Call light is with pt and bed alarm is on. Side rails are padded and no seizure activity noted. Bed is in the lowest and locked positions. Will continue to monitor pt.
[2016-09-26 00:41] VITALS: BP 138/67; PULSE 81; RESP 20; TEMP 97.5; O2SAT 97
--- NOTE | 2016-09-26 02:30 | NUR ---
Rounds Pt is sleeping without any resp distress noted. Pt is tolerating G Tube feeding well. No loose stool or emesis noted. Will continue to monitor pt.
[2016-09-26 04:11] VITALS: BP 118/47; PULSE 67; RESP 16; TEMP 97.9; O2SAT 95
--- NOTE | 2016-09-26 04:30 | NUR ---
Rounds Pt is sleeping comfortably in bed and tolerating G Tube feeding well.
[2016-09-26] MEDS: metroNIDAZOLE 500 mg/NS 100 ML IV SCH (05:49)
[2016-09-26] MEDS: 0.45% NACL 1,000 ML IV SCH (05:57)
--- NOTE | 2016-09-26 06:00 | NUR ---
Closing Note Pt is awake and resting comfortably in bed. All pt's needs were attended to. No fall or injury noted this shift. Will endorse to day shift nurse.
[2016-09-26 07:17] LABS: ANION GAP 2 (5-15); CALCIUM 7.7 mg/dL (8.4-11.0); CHLORIDE 110 mmol/L (98-107); CREATININE 0.81 mg/dL (0.55-1.30); GLUCOSE 149 mg/dL (70-99); POTASSIUM 3.1 mmol/L (3.5-5.1); SODIUM SERUM 146 mmol/L (136-145); UREA NITROGEN, BLOOD 14 mg/dL (8-21)
[2016-09-26 08:00] VITALS: BP 156/72; PULSE 81; RESP 16; TEMP 97.2; O2SAT 95
--- NOTE | 2016-09-26 08:00 | NUR ---
NOTE PT RESTING IN BED. NO SOB/RESP DISTRESS OR PAIN/DISCOMFORT NOTED AT THIS TIME. PT HAS O2 AT 2L/NC AT THIS TIME. IVF'S INFUSING THROUGH RIGHT UPPER ARM PICC. GT FEEDINGS INFUSING WELL THROUGH GT SITE. ABDOMINAL GT SITE INTACT, NO SWELLING/REDNESS/BLEEDING OR DRAINAGE NOTED AT THIS TIME. PT HAS SIDE RAILS PADDED AT THIS TIME FOR SEIZURE PRECAUTIONS. PT HAS SALMERON CATHETER INTACT AND DRAINING WELL. PT ON AN AIR MATTRESS AND HAS BILATERAL SCD'S AT THIS TIME. CALL LIGHT WITHIN REACH. PT MAINTAINED OF CONTACT ISOLATION PRECAUTIONS FOR ESBL IN URINE AND BLOOD. NO NEEDS NOTED AT THIS TIME.
[2016-09-26] MEDS: VALPROATE SODIUM IV SCH (08:34)
[2016-09-26] MEDS: NS IV SCH (08:34)
[2016-09-26] MEDS: POLYETHYLENE GLYCOL 3350, 17 GM/ POWD.PACK PO SCH (08:34)
[2016-09-26] MEDS: LISINOPRIL 10 MG TABLET (PRINIVIL) PO SCH (08:34)
[2016-09-26] MEDS: CITALOPRAM HYDROBROMIDE 20 MG TABLET PO SCH (08:35)
[2016-09-26] MEDS: TRIHEXYPHENIDYL HCL 2 MG TABLET (ARTANE) PO SCH (08:35)
[2016-09-26] MEDS: ASPIRIN 81 MG TAB.CHEW PO SCH (08:35)
[2016-09-26 09:14] LABS: BASOPHILS # (AUTO) 0.1 K/uL (0.0-0.2); BASOPHILS % (AUTO) 1.3 % (0.0-2.0); EOSINOPHILS # (AUTO) 0.1 K/uL (0.0-0.4); EOSINOPHILS % (AUTO) 1.1 % (0.0-4.0); HEMATOCRIT 34.6 % (36-48); HEMOGLOBIN 11.6 g/dL (12.0-16.0); LYMPHOCYTES % (AUTO) 8.7 % (20.5-51.5); MEAN CORPUSCULAR HEMOGLOBIN 29 pg (27-31); MEAN CORPUSCULAR HGB CONC 33 % (32-36); MEAN CORPUSCULAR VOLUME 87 fL (79.0-98.0); MONOCYTES # (AUTO) 0.5 K/uL (0.0-1.0); MONOCYTES % (AUTO) 4.7 % (1.7-9.3); NEUTROPHILS # (AUTO) 9.5 K/uL (1.8-7.7); PLATELET COUNT (AUTO) 138 K/uL (130-430); RED BLOOD CELL COUNT(AUTO) 3.98 MIL/uL (4.2-6.2); RED CELL DISTRIBUTION WIDTH 14.4 % (9.0-15.0); WHITE BLOOD COUNT (AUTO) 11.2 K/uL (4.8-10.8)
[2016-09-26] MEDS: levETIRAcetam 750 MG in NS 100 ML IV SCH (10:35)
[2016-09-26 11:49] LABS: NEUTROPHILS % (AUTO) 84.2 % (40.0-70.0)
--- NOTE | 2016-09-26 11:55 | NUR ---
DISCHARGE PLANNING Patient accepted at [facility]. Ordered Radiology Cd. Placed transportation packet in nurse station. Any ambulance can be arranged. Pending discharge order for bed assignment. Addendum: 09/26/16 at 1540 by Ericka Cui DP DC order received. Called Fanta who will obtain bed assignment. Called patient shamir Shea [phone] left voice message requesting return call back. Addendum: 09/26/16 at 1643 by Ericka Cui DP spoke with Fanta patient assigned to room 304C at [facility] KAVYA to report [phone] bed available anytime. KAVYA Bran made aware. Called [facility] ambulance [phone] spoke with Messi who unable to arrange transport due to no nurse available for transport today. Called [facility] [phone] spoke with Torrey arranged ACLS (Child Care Sitter/O2) transport brass pickler at 6:30pm. Notified patient daughter Yeimy Shea who is agreeable with discharge after 6pm today and will come to see patient before discharge.
[2016-09-26 12:00] VITALS: BP_SYST 152; BP_SYST 157; BP_DIAS 72; BP_DIAS 92; PULSE 102; PULSE 85; RESP 21; TEMP 97.2; TEMP 98.1; O2SAT 97; O2SAT 99
--- NOTE | 2016-09-26 12:00 | NUR ---
NOTE PT TURNED Q2' FOR COMFORT AND TO PROMOTE CIRCULATION TO BACK AND COCCYX AREA. PT WAS GIVEN BED BATH AND HYGIENE CARE AT THIS TIME WELL. PT CHECKED ON Q1' AND PRN FOR NEEDS AND CARE. CALL LIGHT WITHIN REACH. PT'S DAUGHTER AND PT'S CALLED X2 FOR UPDATE ON PT'S STATUS. NO NEEDS NOTED.
[2016-09-26] MEDS: GENTAMICIN 80 MG/ ISO-OSM 100 ML PREMIX IV SCH (14:10)
--- NOTE | 2016-09-26 14:45 | NUR ---
NOTE PT RESTING IN BED. PT TURNED AND HYGIENE CARE PROVIDED AT THIS TIME WELL. GT FEEDINGS INFUSING WELL. IVF'S INFUSING THROUGH RIGHT UPPER ARM PICC. CALL LIGHT WITHIN REACH. NO NEEDS NOTED. O2 AT 2L/NC ON AT THIS TIME.
--- NOTE | 2016-09-26 15:43 | NUR ---
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 Alzheimer's dementia, dysphagia, HLD, psychotic disorder per MD notes Subjective Information Pt seen resting in bed w/ TF infusing per MD order, so far, 468 ml infused, providing 702 kcal/day. INNER LAYER SCRUBBER TENDER was at bedside taking vitals. INNER LAYER SCRUBBER TENDER reports that pt only had smear, no definite BM during her shift. Per RN, pt has been tolerating TF well w/ no residuals. She states that pt was accepted to [facility], and pending D/C order. Per EMR, TF Intakes: 195 ml 09/26/16. Residuals: 5 ml 09/26/16. Abd is soft and non-distended w/ active bowel sounds. I/O: 795/900 (-105 ml) per 12 hours. Pt is meeting optimal nutritional needs; TF regimen is adequate and appropriate. Pt is not appropriate for nutrition education. Current Diet Order/Nutrition Support Isosource 1.5 at 35 ml/hr, Prosource BID, FWF: 175 ml q4h via GT x1 day Patient/Significant Other Unable To Verbalize Education Provided Not indicated Pertinent Medications miralax, gentamicin/NaCl IV Pertinent Labs WBC 11.2 H, BG 149 H, ALB 1.9 L (09/25/16) Height (Feet) 4 feet Height (Inches) 11.00 inches Weight (Pounds) 117 pounds (admission) BEDSCALE WT: 168 lb, 76 (09/24/16); 176 lb, 80 kg (09/26/16) -- likely inaccurate as pt is on an air mattress Weight (Calculated Kilograms) 53.195932 kilograms Patient Weight 53.07 kg Body Mass Index 23.63 kg/m2 %IBW 118 [place]/Adjusted Body Weight IBW: 98 lb, 45 kg Recent Weight Change Unknown Weight Status Underweight Gastrointestinal Symptoms None Last BM Sep 25, 2016 x1 Food Allergies Unknown Usual Diet At Home [facility]: Regular diet, pureed texture, thin consistency Skin Integrity Comment: Kareem scale: 16. Per Finger Cobbler note 09/25/16: skin is fair; pt is incontinent of bowel and bladder Current % PO None Estimated Energy Expenditure (kcals/day) 3032-1294 kcal/day (BEE x 1.2-1.5 CBW for sepsis) Estimated Protein Required (g/day) 80-106 gm/day (1.5-2 gm/kg CBW for sepsis) Estimated Fluid Required (l/day) 1.6-1.9 L/day (30-35 kcal/kg CBW for geriatric maintenance) Problem/Etiology/Signs/Symptoms Increased nutritional needs related to metabolic demands as evidenced by elevated WBC and estimated nutritional requirements. *ongoing Expected Outcomes/Goals - Monitor appetite and PO intakes w/ goal of pt meeting at least 50% of estimated nutritional needs, labs trending WNL, normal GI function, and skin integrity/wt maintenance *ongoing Dietitian Recommendations * Recommend Isosource 1.5 at 35 ml/hr, Prosource BID, Free Water Flush: 175 ml Q4h via NGT Provides: 1380 kcal/day, 87 gm protein/day, and 1692 ml free water/day Meets: 112% of lower end of estimated caloric needs and 109% of lower end of estimated protein needs Follow Up Moderate Risk: F/U in 3-5 days
[2016-09-26 16:00] VITALS: BP 143/64; PULSE 80; RESP 21; TEMP 97.8; O2SAT 94
--- NOTE | 2016-09-26 17:50 | NUR ---
NOTE [facility] Addendum: 09/26/16 at 1854 by Yina Buckley RN ENE [phone] - [id number] OR [id number] (AVANI WAS NOT SURE)
[2016-09-26 17:59] VITALS: BP 145/65; PULSE 80; RESP 18; TEMP 97.5; O2SAT 95
--- NOTE | 2016-09-26 18:00 | NUR ---
NOTE PT'S TELE UNIT WAS DC'D AND RETURNED TO CLINICAL PROGRAM COORDINATOR.
--- NOTE | 2016-09-26 18:35 | NUR ---
NOTE PT OFF THE FLOOR VIA GURNEY TO [facility]. RIGHT PICC SALINE LOCKED AND FLUSHED WITH NS. PT DRESSED IN ORANGE GOWN AND SHEET. PT'S 2 FAMILY MEMBERS AT BEDSIDE AND TOOK ALL PT'S BELONGINGS FROM CLOSET AND CHECKED SIDE TABLE AND DRAWERS FOR BELONGINGS. PT OFF THE FLOOR WITH [facility] 2 INDUSTRIAL COFFEE GRINDER AND RN. PT STABLE AND NO NEEDS NOTED. PT HAD O2 AT 2L/NC. PT'S GT WAS CLAMPED AND ABDOMINAL BINDER ON PT AT THIS TIME. DISCHARGE PACKET GIVEN TO EMT TO GIVE [facility] FOR CONTINUATION OF CARE.
[2016-09-27] MEDS ORDERED: GENTAMICIN 100 MG/ ISO-OSM 50 ML PREMIX IV SCH (11:00)
--- NOTE | 2016-10-03 10:03 | NUR ---
>> Requested via phone from Jairon, marketing automation analyst at [facility] who is looking for the pt. The pt. was a long time resident and the bed is on hold. Info given per record that the pt. was discharged to [facility] on 09/26/16. -- TVRN.
== END 2016-09-26 18:35 | DRG 853 ==
LOC: SED 14:42 → STU 16:57 → SIC 09-22 11:50 → STU 09-25 18:49
PROVIDERS: ADMIT Family Medicine; ATTEND Family Medicine
PROC: BT1D1ZZ Fluoroscopy of Right Kidney, Ureter and Bladder using Low Osmolar Contrast (ICD-10-PCS; 2016-09-21)
PROC: 0T768DZ Dilation of Right Ureter with Intraluminal Device, Via Natural or Artificial Opening Endoscopic (ICD-10-PCS; principal; 2016-09-21 16:30)
PROC: 02H633Z Insertion of Infusion Device into Right Atrium, Percutaneous Approach (ICD-10-PCS; 2016-09-22)
PROC: B244ZZZ Ultrasonography of Right Heart (ICD-10-PCS; 2016-09-22)
PROC: 0DH63UZ Insertion of Feeding Device into Stomach, Percutaneous Approach (ICD-10-PCS; 2016-09-25)
PROC: 0T938ZZ Drainage of Right Kidney Pelvis, Via Natural or Artificial Opening Endoscopic (ICD-10-PCS; 2016-09-25)
DX: A41.50 Gram-negative sepsis, unspecified (principal); R65.21 Severe sepsis with septic shock; N13.30 Unspecified hydronephrosis; G81.91 Hemiplegia, unspecified affecting right dominant side; N17.9 Acute kidney failure, unspecified; N20.1 Calculus of ureter; N12 Tubulo-interstitial nephritis, not specified as acute or chronic; G40.909 Epilepsy, unspecified, not intractable, without status epilepticus; I10 Essential (primary) hypertension; G30.9 Alzheimer's disease, unspecified; F02.80 Dementia in other diseases classified elsewhere, unspecified severity, without behavioral disturbance, psychotic disturbance, mood disturbance, and anxiety; R13.10 Dysphagia, unspecified; E78.5 Hyperlipidemia, unspecified; E11.9 Type 2 diabetes mellitus without complications; K56.41 Fecal impaction; G47.00 Insomnia, unspecified; K21.0 Gastro-esophageal reflux disease with esophagitis; F32.9 Major depressive disorder, single episode, unspecified; F41.9 Anxiety disorder, unspecified; F29 Unspecified psychosis not due to a substance or known physiological condition; Z86.73 Personal history of transient ischemic attack (TIA), and cerebral infarction without residual deficits; Z88.0 Allergy status to penicillin; Z79.899 Other long term (current) drug therapy
CPT/HCPCS: 36415; 43246; 70450-TC; 70551; 71010; 74000-TC; 76000; 80048; 80053; 80164-TC; 80170-TC; 80307; 81000-TC; 82140-TC; 82962; 83605; 83735-TC; 83880; 84100-TC; 84439; 84484; 85007; 85025; 85027; 85610-TC; 85730-TC; 87040-TC; 87081; 87086; 87186-TC; 92610-GN; 93005; 96374; 99285; C1751; C1758; C1769; C2625; G0482; J0610; J0692; J0696; J1100; J1165; J1335; J1580; J1885; J1953; J1956; J2060; J2250; J2270; J2405; J2704; J2710; J3010; J3243; J3370; J3480; J3490; J7030; J7040; J7050; J7060; J7120; Q9967